=== PATIENT | male | born 2000 | race Caucasian/White ===

== ENCOUNTER 2022-04-23 05:46 | Inpatient (IN) | payer OTHER ==
[2022-04-23] MEDS ORDERED: MAG HYDROX/AL HYDROX/SIMETH 30 ML CUP PO PRN (06:09)
[2022-04-23] MEDS ORDERED: MAGNESIUM HYDROXIDE 2,400 MG/10 ML CUP PO PRN (06:09)
[2022-04-23] MEDS ORDERED: HALOPERIDOL LACTATE 5 MG/ML 1 ML VIAL IM PRN (06:09)
[2022-04-23] MEDS ORDERED: LORazepam 1 MG TAB PO PRN (06:09)
[2022-04-23] MEDS ORDERED: ACETAMINOPHEN TAB 325 MG TAB PO PRN (06:09)
[2022-04-23] MEDS ORDERED: LORazepam 2 MG/ML INJ IM PRN (06:18)
[2022-04-23] MEDS ORDERED: haloperidoL 5 MG TAB PO PRN (06:19)
[2022-04-23] MEDS: NICOTINE 14MG/24HR PATCH TRANSDERM SCH (16:07)
[2022-04-24 07:58] LABS: HCT 43.3 % (39.0-53.0); HGB 14.7 gm/dL (13.0-17.5); MCH 28.9 pg (25.0-35.0); Mean Platelet Volume 6.7; Platelet Count 283 k/uL (150-450); RDW 12.3 % (11.5-15.5); WBC 4.9 k/uL (3.8-10.6)
[2022-04-24 08:30] LABS: ALT 95 U/L (4-49); AST 140 U/L (17-59); African American GFR (CKD) >90 (>60 ml/min/1.73 sqM); Albumin 4.5 g/dL (3.5-5.0); Alkaline Phosphatase 55 U/L (38-126); Anion Gap 10 mmol/L; Bilirubin, Delta 0.4 mg/dL (0.0-0.2); Bilirubin,Unconjugated 0.8 mg/dL (0.0-1.1); Blood Urea Nitrogen 16 mg/dL (9-20); Calcium 9.4 mg/dL (8.4-10.2); Carbon Dioxide 27 mmol/L (22-30); Chloride 100 mmol/L (98-107); Glucose 84 mg/dL (74-99); Non-African American GFR(CKD) >90 (>60 ml/min/1.73 sqM); Potassium 4.6 mmol/L (3.5-5.1); Sodium 137 mmol/L (137-145); Total Bilirubin 1.2 mg/dL (0.2-1.3); Total Protein 7.2 g/dL (6.3-8.2)
[2022-04-24 09:52] LABS: Eosinophils # (M) 0.05 k/uL (0-0.7); Monocytes # (M) 0.34 k/uL (0-1.0); Neutrophils # (M) 2.11 k/uL (1.3-7.7); Neutrophils % (M) 43 %; Nucleated Red Blood Cells 0 /100 WBC (0-0); Reactive Lymphocytes Present; Total Cells Counted 100
[2022-04-24] MEDS: NICOTINE 14MG/24HR PATCH TRANSDERM SCH (10:36)
--- NOTE | 2022-04-24 12:39 | P.CONS ---
History of Present Illness - Reason for Consult Consult date: 04/24/22 Medical management Requesting physician: Maverick Katz - Chief Complaint Severe depression - History of Present Illness This is a pleasant 21-year-old patient, was being prescribed antidepressants per his family doctor Dr. Bari Gar. Who was at [facility] from 04/15/2022 was discharged yesterday at 04/23/2022. Patient presented to the ER with his parents. He'll finish school during pandemic. He previously was sleeps during the daytime and plays video games at night. Did not been able to get any psychiatry help because of insurance reasons. Also patient is reluctant to go and get outside help. But he was stays at home. Prior to presentation patient to many tablets of Klonopin 0.5 mg and Wellbutrin multiple medications the course of the day. He also developed a superficial laceration on the left breast . This was stitched up in the ER. Patient did have some myoclonic jerking. EEG was unremarkable. Diagnosed with delirium/encephalopathy. Poison control was contacted. Patient was found to have severe rhabdomyolysis with a CPK greater than 40,000. It had come down to 4000 by discharge. Patient was tolerating a diet. Ambulating the hallway. Patient accepted to [address] [place] [address]. Patient arrived here yesterday at 3:05 PM and intake was done. Patient feels a bit better today admitting. Did have his breakfast. Review of systems: GEN.: None EYES: None HEENT: None NECK: None RESPIRATORY: None CARDIOVASCULAR: None GASTROINTESTINAL: None GENITOURINARY: None MUSCULOSKELETAL: Laceration left wrist. stitches. LYMPHATICS: None HEMATOLOGICAL: None PSYCHIATRY: Depressed NEUROLOGICAL: None Social history: Lives with his parents. Unemployed. Physical examination: VITAL SIGNS: 97.8, 68, 16, 152/70, 99% room air GENERAL: BMI 23.2, awake, comfortable. EYES: Pupils equal. Conjunctiva normal. HEENT: External appearance of nose and ears normal, oral cavity grossly normal. NECK: JVD not raised; masses not palpable. HEART: First and second heart sounds are normal; no edema. LUNGS: Respiratory rate normal; clear to auscultation. ABDOMEN: Soft, nontender, liver spleen not palpable, no masses palpable. PSYCH: [Alert and oriented x3; mood and affect depressed. MUSCULOSKELETAL:No Clubbing/cyanosis;muscles-grossly intact. Superficial laceration to the left wrist with stitches NEUROLOGICAL: Cranial nerves grossly intact; no facial asymmetry, power and sensation grossly intact. LYMPHATICS: No lymph nodes palpable in the axilla and neck INVESTIGATIONS, reviewed in the clinical context: White count 4.9 hemoglobin 14.7 platelets 23 potassium 4.6 creatinine 0.9 to AST 140 ALT 95 TSH 1.5 Investigations from the other hospital: Urine drug screen negative Assessment and plan: -Major depression, recurrent with psychosis. Suicide attempt Follow with psychiatry. -Acute hepatitis secondary to medications. The son Ghanshyam acute hepatitis panel. -Acute rhabdomyolysis from myoclonus, documented abnormalities. Improving. Check CPK. Encourage oral intake discussed with patient. Thank you Dr. Katz. Patient to follow-up with Dr. Bari Gar upon discharge Past Medical History History of Any Multi-Drug Resistant Organisms: None Reported Smoking Status: Vaper Past Alcohol Use History: None Reported Past Drug Use History: None Reported Medications and Allergies Allergies Allergy/AdvReac Type Severity Reaction Status Date / Time No Known Allergies Allergy Verified 04/23/22 06:06 Physical Exam Vitals: Vital Signs Temp Pulse Resp BP Pulse Ox 04/24/22 06:52 97.8 F 68 16 152/70 99 04/23/22 15:05 98.3 F 74 16 126/73 96 Intake and Output 04/23/22 04/24/22 04/24/22 22:59 06:59 14:59 Other: Weight 69.173 kg Results CBC & Chem 7: 04/24/22 07:28 04/24/22 07:28 Labs: Abnormal Lab Results - Last 24 Hours (Table) 04/24/22 Range/Units 07:28 Delta Bilirubin 0.4 H (0.0-0.2) mg/dL AST 140 H (17-59) U/L ALT 95 H (4-49) U/L
[2022-04-24] MEDS ORDERED: hydrOXYzine pamoate 25 MG CAP PO PRN (14:50)
[2022-04-24 15:51] LABS: Chol/HDL Ratio 4.88 Ratio; LDL Cholesterol,Calculated 77.1 mg/dL (0.0-131.0)
[2022-04-24] MEDS: DULoxetine HCL 30 MG CAPSULE.DR PO SCH (16:15)
--- NOTE | 2022-04-24 17:17 | P.HP ---
Psychiatric H&P - . H&P Date: 04/24/22 History & Physical: Allergies Allergy/AdvReac Type Severity Reaction Status Date / Time No Known Allergies Allergy Verified 04/23/22 06:06 Vital Signs Temp 97.8 F 04/24/22 06:52 Pulse 68 04/24/22 06:52 Resp 16 04/24/22 06:52 BP 152/70 04/24/22 06:52 Pulse Ox 99 04/24/22 06:52 FiO2 Intake & Output 04/23/22 04/24/22 04/24/22 18:59 06:59 18:59 Weight 69.173 kg Laboratory Last Values WBC 4.9 k/uL (3.8-10.6) 04/24/22 07:28 RBC 5.10 m/uL (4.30-5.90) 04/24/22 07:28 Hgb 14.7 gm/dL (13.0-17.5) 04/24/22 07:28 Hct 43.3 % (39.0-53.0) 04/24/22 07:28 MCV 85.0 fL (80.0-100.0) 04/24/22 07:28 MCH 28.9 pg (25.0-35.0) 04/24/22 07:28 MCHC 34.0 g/dL (31.0-37.0) 04/24/22 07:28 RDW 12.3 % (11.5-15.5) 04/24/22 07:28 Plt Count 283 k/uL (150-450) 04/24/22 07:28 MPV 6.7 04/24/22 07:28 Neutrophils % (Manual) 43 % 04/24/22 07:28 Lymphocytes % (Manual) 49 % 04/24/22 07:28 Monocytes % (Manual) 7 % 04/24/22 07:28 Eosinophils % (Manual) 1 % 04/24/22 07:28 Neutrophils # (Manual) 2.11 k/uL (1.3-7.7) 04/24/22 07:28 Lymphocytes # (Manual) 2.40 k/uL (1.0-4.8) 04/24/22 07:28 Monocytes # (Manual) 0.34 k/uL (0-1.0) 04/24/22 07:28 Eosinophils # (Manual) 0.05 k/uL (0-0.7) 04/24/22 07:28 Nucleated RBCs 0 /100 WBC (0-0) 04/24/22 07:28 Manual Slide Review Performed 04/24/22 07:28 Reactive Lymphocytes Present 04/24/22 07:28 Sodium 137 mmol/L (137-145) 04/24/22 07:28 Potassium 4.6 mmol/L (3.5-5.1) 04/24/22 07:28 Chloride 100 mmol/L (98-107) 04/24/22 07:28 Carbon Dioxide 27 mmol/L (22-30) 04/24/22 07:28 Anion Gap 10 mmol/L 04/24/22 07:28 BUN 16 mg/dL (9-20) 04/24/22 07:28 Creatinine 0.92 mg/dL (0.66-1.25) 04/24/22 07:28 Est GFR (CKD-EPI)AfAm >90 (>60 ml/min/1.73 sqM) 04/24/22 07:28 Est GFR (CKD-EPI)NonAf >90 (>60 ml/min/1.73 sqM) 04/24/22 07:28 Glucose 84 mg/dL (74-99) 04/24/22 07:[address] Glu mg/dL 89 04/24/22 07:28 Hemoglobin A1c 4.7 % (0.0-6.0) 04/24/22 07:28 Calcium 9.4 mg/dL (8.4-10.2) 04/24/22 07:28 Total Bilirubin 1.2 mg/dL (0.2-1.3) 04/24/22 07:28 Conjugated Bilirubin 0.0 mg/dL (0.0-0.3) 04/24/22 07:28 Unconjugated Bilirubin 0.8 mg/dL (0.0-1.1) 04/24/22 07:28 Delta Bilirubin 0.4 mg/dL (0.0-0.2) H 04/24/22 07:28 AST 140 U/L (17-59) H 04/24/22 07:28 ALT 95 U/L (4-49) H 04/24/22 07:28 Alkaline Phosphatase 55 U/L (38-126) 04/24/22 07:28 Total Protein 7.2 g/dL (6.3-8.2) 04/24/22 07:28 Albumin 4.5 g/dL (3.5-5.0) 04/24/22 07:28 Triglycerides 159.00 mg/dL (0.00-149.00) H 04/24/22 07:28 Cholesterol 137.00 mg/dL (0.00-200.00) 04/24/22 07:28 LDL Cholesterol, Calc 77.1 mg/dL (0.0-131.0) 04/24/22 07: VLDL Cholesterol, Calc 31.80 mg/dL (5.00-40.00) 04/24/22 07: HDL Cholesterol 28.10 mg/dL (40.00-60.00) L 04/24/22 07: Cholesterol/HDL Ratio 4.88 Ratio 04/24/22: TSH 1.530 mIU/L (0.465-4.680) 04/24/22 07:28 04/24/22 17:01 IDENTIFYING DATA: Patient is a []21 yo male, who currently lives with his family in a house, unemployed HPI: Patient presented to the hospital on a petition and certificate and admitted involuntarily. Patient apparently overdosed at home in a suicide attempt. Patient was agreeable to be seen by marketing writer int he office today. he was monotone and concrete. he had his hair covering his face throughout the interview. he claims that he was trying to kill himself before coming into the hospital. he claims that he overdosed on multiple pills, klonopin cymbalta and wellbutrin. He states that he also cut his wrists at home. He claims that he went to sleep and "woke up in the hospital". he is denying any triggers ta home or in his life, no recent stressors. he states that "I just had the desire to do it". he has limited insight and poor judgment. claims that his sleep is fiar and appetite is fair. admitts to depression and anxiety. Patient denies any current suicidal or homicidal ideations intent or plan. At this time patient denies any auditory or visual hallucinations. Patient denies any flight of ideas racing thoughts and increased in goal directed behavior. Patient admits to using vaping products. PAST PSYCHIATRIC HISTORY: Patient states that [He has a hx of depression and anxiety]. [Patient was previously on cymbalta, wellbutrin, klonopin, zoloft.] Patient claims that he has never been admitted to a psych unit previously. He states that he gets his meds percribed by his pcp Dr Gar. He claims that he previously overdosed on etoh and xanax.\\ Past Medical History: No Reported History History of Any Multi-Drug Resistant Organisms: None Reported Past Surgical History: No Surgical Hx Reported Past Psychological History: Anxiety, Depression, PTSD Smoking Status: Never smoker Past Alcohol Use History: None Reported Past Drug Use History: None Reported ALLERGIES: as per EMR CHEMICAL DEPENDENCY HISTORY: as per HPI FAMILY PSYCHIATRIC/SUBSTANCE USE HISTORY: states that his brother has depression SOCIAL HISTORY: Patient was born and raised in [place], [place]. He claims that he compkleted high school and did one year of university at [employer]. he denies any legal history, currently lives alone. MENTAL STATUS EXAM: General Appearance: Patient appears to be [thin,] stated age is alert, long hair covering his face, [directable, and attempts to cooperate]. Patient appears to have [fair] hygiene and grooming. Behavior: Patient is seated without any agitated behavior. []cooperative Speech: Patient's speech is [fluent and nonpressured.] monotone, concrete. Mood/Affect: Patient reports their mood is [depressed and anxious], affect is congruent and constricted. Suicidality/Homicidality: Patient denies having any homicidal ideation intent or plan. [Denies any suicidal ideations intent or plan] Perceptions: Patient denies any visual hallucinations [and denies any auditory hallucinations] Though content/process: [There is no evidence of any delusional thought content and thought process is linear and goal-directed.] concrete. minimizing need for treatment and hospitalization. Memory and concentration: AOX3, grossly intact for the purposes of this session. Can spell "WORLD" backwards Judgment and insight: [poor] STRENGTHS/WEAKNESSES: strength is that patient is [resilient]. Weakness is that patient [has poor judgment and is impulsive] INTELLECT: [average] IMPRESSIONS: []Major depressive disorder without psychotic features anxiety disorder unspecified overdose of medication PLAN: -Patient is admitted under [involuntary] status to MHU for stabilization of psychiatric symptoms and safety. Patient has signed [medication consent] and is placed in patient's chart. -Medications : Will start patient on cymbalta 30 mg daily for mood/anxiety, lithium 150 mg bid for mood stabiliation/suicidal thoughts. vistaril prn for anxiety. -Ativan [and Haldol] PRN for agitation/aggression -Patient was informed of the risks, benefits and side effects of the medication and patient verbally consented to taking the medications. Patient signed med consent form and was placed in chart. -Internal Medicine consult to perform medical evaluation and physical. -NRT - nicotine patch -SW on board for discharge planning. Encourage patient to participate in groups to work on coping skills. will await deferral and court hearing date 04/24/22 17:15 04/24/22 17:16
[2022-04-24] MEDS: LITHIUM CARBONATE 150 MG CAP PO SCH (20:56)
[2022-04-25] MEDS: DULoxetine HCL 30 MG CAPSULE.DR PO SCH (09:28)
[2022-04-25] MEDS: LITHIUM CARBONATE 150 MG CAP PO SCH ×2 (09:28→21:44)
[2022-04-25] MEDS: NICOTINE 14MG/24HR PATCH TRANSDERM SCH (09:29)
[2022-04-25 09:55] LABS: Hepatitis A Antibody IgM Nonreactive (Nonreactive); Hepatitis B Core IgM Nonreactive (Nonreactive); Hepatitis B Surface Antigen Nonreactive (Nonreactive); Hepatitis C IgG Antibody Nonreactive (Nonreactive)
[2022-04-26] MEDS: DULoxetine HCL 30 MG CAPSULE.DR PO SCH ×2 (09:20→20:51)
[2022-04-26] MEDS: NICOTINE 14MG/24HR PATCH TRANSDERM SCH (09:20)
[2022-04-26] MEDS: LITHIUM CARBONATE 150 MG CAP PO SCH ×2 (09:20→20:51)
--- NOTE | 2022-04-26 21:47 | P.PN ---
Progress Note - Text Progress Note Date: 04/26/22 Interval history: Patient was directable and agreeable to speak with promotion writer. He appears withdrawn, covers his face with his hair. He admits he gets nervous around others. He does not say much, but admits to depressed mood and agrees to increase the Cymbalta to 30 mg BID. At this time, patient denies any suicidal or homicidal ideation, intent or plan. Denies any auditory or visual hallucinations. Patient denies any side effects from the medications and has been compliant with meds. Mental status exam: General Appearance: Patient appears to be stated age, dressed in hospital gown, pale skin, long hair covering face. Behavior: No agitated behavior. Patient is calm and directable. Speech: Patient's speech is fluent and non-pressured. Mood/Affect: Mood is improving mildly, affect is congruent and constricted. Suicidality/Homicidality: Patient denies having any suicidal or homicidal ideation intent or plan. Perceptions: Patient denies any auditory or visual hallucinations. Though content/process: There is no evidence of any delusional thought content and thought process is linear and goal-directed. Memory and concentration: AOX3, grossly intact for the purposes of this session Judgment and insight: Improving mildly Assessment/Plan: Continue with current diagnosis. Patient continues to meet criteria for inpatient psychiatric admission for symptom stabilization and safety. Increase Cymbalta to 30 mg BID for depression/anxiety. Monitor for medication compliance and for any psychotropic medication side effects. Will continue to monitor ongoing response to treatment. Encouraged participation in milieu.
--- NOTE | 2022-04-26 21:51 | P.PN ---
Progress Note - Text Progress Note Date: 04/25/22 Interval history: Patient was seen in his room where he was laying in bed asleep in the middle of the day. He appears withdrawn, isolative, covers his face with his hair. He is passively engaged in assessment, responses are brief and lacking detail. He reports mood is average, reports the medications are "ok". He reports good sleep, normal appetite, has attended a couple groups. At this time, patient denies any suicidal or homicidal ideation, intent or plan. Denies any auditory or visual hallucinations. Patient denies any side effects from the medications and has been compliant with meds. Mental status exam: General Appearance: Patient appears to be stated age, dressed in hospital gown, pale skin, long hair covering face. Behavior: No agitated behavior. Patient is calm and directable. Speech: Patient's speech is fluent and non-pressured. Mood/Affect: Mood is improving mildly, affect is congruent and constricted. Suicidality/Homicidality: Patient denies having any suicidal or homicidal ideation intent or plan. Perceptions: Patient denies any auditory or visual hallucinations. Though content/process: There is no evidence of any delusional thought content and thought process is linear and goal-directed. Memory and concentration: AOX3, grossly intact for the purposes of this session Judgment and insight: Improving mildly Assessment/Plan: Continue with current diagnosis. Patient continues to meet criteria for inpatient psychiatric admission for symptom stabilization and safety. Patient will be maintained on current psychotropic medication regimen. Monitor for medication compliance and for any psychotropic medication side effects. Will continue to monitor ongoing response to treatment. Encouraged participation in milieu.
[2022-04-27] MEDS: LITHIUM CARBONATE 150 MG CAP PO SCH ×3 (10:19→20:52)
[2022-04-27] MEDS: DULoxetine HCL 30 MG CAPSULE.DR PO SCH (10:19)
[2022-04-27] MEDS: NICOTINE 14MG/24HR PATCH TRANSDERM SCH (10:19)
--- NOTE | 2022-04-27 13:27 | P.PN ---
Progress Note - Text Progress Note Date: 04/27/22 Interval History: Patient was seen today and was agreeable to speak to contract writer in the office. Skyler tomer continues to have hair that covering his face. Continues to be fairly constricted and concrete in his answers. He was directable. He was polite with a contract writer. He states that he has been taking his medications however does not see much of an improvement. He claims that he does not want to feel "pain" and also does not want to have "other people find me" if he were to harm himself however did not contract to safety. He continues to have on and off suicidal thoughts and little remorse about what had occurred prior to coming into the hospital. He states that he is able to sleep fairly last night. We spoke more about his medications and increasing the Cymbalta which she was okay with. He is denying any homicidal ideations intent or plan. Denying any auditory or visual hallucinations. Mental Status Exam: General Appearance: Patient appears to be [thin,] stated age is alert, long hair covering his face, [directable, and attempts to cooperate]. Patient appears to have [fair] hygiene and grooming. Behavior: Patient is seated without any agitated behavior. []cooperative Speech: Patient's speech is [fluent and nonpressured.] monotone, concrete. Mood/Affect: Patient reports their mood is ["about the same"], affect is congruent and constricted. Suicidality/Homicidality: Patient denies having any homicidal ideation intent or plan. [Denies any suicidal ideations intent or plan] Perceptions: Patient denies any visual hallucinations [and denies any auditory hallucinations] Though content/process: [There is no evidence of any delusional thought content and thought process is linear and goal-directed.] concrete. continues to talk about suicide and . Memory and concentration: AOX3, grossly intact for the purposes of this session Judgment and insight: poor, improving mildly IMPRESSIONS: []Major depressive disorder without psychotic features anxiety disorder unspecified overdose of medication PLAN: -Patient is admitted under [involuntary] status to MHU for stabilization of psychiatric symptoms and safety. -Medications : increase cymbalta 30 mg daily + 60 mg qhs for mood/anxiety, increase lithium 150 mg TID for mood stabiliation/suicidal thoughts. vistaril prn for anxiety. -Ativan [and Haldol] PRN for agitation/aggression -NRT - nicotine patch -SW on board for discharge planning. Encourage patient to participate in groups to work on coping skills. will await deferral and court hearing date
[2022-04-27] MEDS ORDERED: DULoxetine HCL 60 MG CAPSULE.DR PO SCH (21:00)
[2022-04-28] MEDS ORDERED: DULoxetine HCL 30 MG CAPSULE.DR PO SCH (09:00)
[2022-04-28] MEDS: LITHIUM CARBONATE 150 MG CAP PO SCH (10:19)
[2022-04-28] MEDS: NICOTINE 14MG/24HR PATCH TRANSDERM SCH (10:20)
--- NOTE | 2022-04-28 13:01 | P.PN ---
Progress Note - Text Progress Note Date: 04/28/22 Interval History: Patient was seen today laying in his bed and was agreeable to speak to headline writer in the office. Patient continues to have hair that covering his face and continues to be fairly constricted and concrete in his answers. he continues to be fairly polite with headline writer. He states that he is able to sleep fairly last night. he states that he continues to struggle with and end of life and states that he has been dealing with SI for a while now. he continues to state that he does not want to feel pain or cause problems for others. he states that he has been having difficulties sleeping and states that his roomate was snoring and kept him up last night. We spoke more about his medications and increasing the Cymbalta which she was okay with. He is denying any immediate thoughts of SI, denies any homicidal ideations intent or plan. Denying any auditory or visual hallucinations. patient has been taking his meds and denies any a/e. Mental Status Exam: General Appearance: Patient appears to be [thin,] stated age is alert, long hair covering his face, [directable, and attempts to cooperate]. Patient appears to have [fair] hygiene and grooming. Behavior: Patient is seated without any agitated behavior. cooperative Speech: Patient's speech is [fluent and nonpressured.] monotone, concrete. Mood/Affect: Patient reports their mood is ["about the same"], affect is congruent and constricted. Suicidality/Homicidality: Patient denies having any homicidal ideation intent or plan. [Denies any suicidal ideations intent or plan] Perceptions: Patient denies any visual hallucinations [and denies any auditory hallucinations] Though content/process: [There is no evidence of any delusional thought content and thought process is linear and goal-directed.] concrete. continues to talk about suicide and , improving mildly, some future orientation. Memory and concentration: AOX3, grossly intact for the purposes of this session Judgment and insight: improving mildly IMPRESSIONS: Major depressive disorder without psychotic features anxiety disorder unspecified overdose of medication PLAN: -Patient is admitted under [involuntary] status to MHU for stabilization of psychiatric symptoms and safety. -Medications : increase cymbalta 60 mg BID for mood/anxiety, change to lithobid 450 mg daily for mood stabiliation/suicidal thoughts. vistaril prn for anxiety. -check lithium level, comp and CK tomorrow morning. -Ativan [and Haldol] PRN for agitation/aggression -NRT - nicotine patch -SW on board for discharge planning. Encourage patient to participate in groups to work on coping skills. patient deferred with his immigration attorney. likely discharge in 1-2 days.
[2022-04-28] MEDS: DULoxetine HCL 60 MG CAPSULE.DR PO SCH (20:37)
[2022-04-29] MEDS: LITHIUM CARBONATE ER 450 MG TABLET.ER PO SCH (08:21)
[2022-04-29] MEDS: DULoxetine HCL 60 MG CAPSULE.DR PO SCH ×2 (08:21→20:12)
[2022-04-29] MEDS: NICOTINE 14MG/24HR PATCH TRANSDERM SCH (08:42)
[2022-04-29 09:59] LABS: ALT 88 U/L (4-49); AST 47 U/L (17-59); African American GFR (CKD) >90 (>60 ml/min/1.73 sqM); Albumin 4.4 g/dL (3.5-5.0); Alkaline Phosphatase 52 U/L (38-126); Anion Gap 10 mmol/L; Blood Urea Nitrogen 13 mg/dL (9-20); Carbon Dioxide 26 mmol/L (22-30); Chloride 102 mmol/L (98-107); Creatine Kinase 336 U/L (55-170); Glucose 155 mg/dL (74-99); Non-African American GFR(CKD) >90 (>60 ml/min/1.73 sqM); Sodium 138 mmol/L (137-145); Total Bilirubin 0.7 mg/dL (0.2-1.3); Total Protein 6.8 g/dL (6.3-8.2)
--- NOTE | 2022-04-29 10:20 | P.PN ---
Progress Note - Text Progress Note Date: 04/29/22 Interval History: Patient was seen today laying in his bed and was agreeable to speak to jingle writer in the office. Patient continues to have hair that covering his face and continues to be fairly constricted however today patient claims that he is doing a bit better overall. He states that he has only been going to about 2 groups a day and usually misses the morning groups as he is not interested in them. He was fairly polite and directable during conversation and fairly appropriate. He claims that he did speak with his mother over the phone however was fairly guarded about what they talked about. He did speak about where she will be following up near [place] where he lives. He did ask questions more about his medications and appears to be more involved. Appears to have mildly improving insight and judgment today. States that he slept a bit better last night and has a fair appetite. He is denying any immediate thoughts of SI, denies any homicidal ideations intent or plan. Denying any auditory or visual hallucinations. patient has been taking his meds and denies any a/e. Mental Status Exam: General Appearance: Patient appears to be [thin,] stated age is alert, long hair covering his face, [directable, and attempts to cooperate]. Patient appears to have [fair] hygiene and grooming. Behavior: Patient is seated without any agitated behavior. cooperative Speech: Patient's speech is [fluent and nonpressured.] monotone, concrete, improving mildly Mood/Affect: Patient reports their mood is ["a bit better "], affect is congruent Suicidality/Homicidality: Patient denies having any homicidal ideation intent or plan. [Denies any suicidal ideations intent or plan] Perceptions: Patient denies any visual hallucinations [and denies any auditory hallucinations] Though content/process: [There is no evidence of any delusional thought content and thought process is linear and goal-directed.] concrete. more future oriented today. Memory and concentration: AOX3, grossly intact for the purposes of this session Judgment and insight: improving mildly IMPRESSIONS: Major depressive disorder without psychotic features anxiety disorder unspecified overdose of medication PLAN: -Patient is admitted under [involuntary] status to MHU for stabilization of psychiatric symptoms and safety. -Medications : cymbalta 60 mg BID for mood/anxiety, lithobid 450 mg daily for mood stabiliation/suicidal thoughts. vistaril prn for anxiety. -awaiting lithium level. CK improved and LFTs improved aswell. -Ativan [and Haldol] PRN for agitation/aggression -NRT - nicotine patch -SW on board for discharge planning. Encourage patient to participate in groups to work on coping skills. patient deferred with his assistant attorney general. likely discharge tomorrow. SW to coordinate discharge planning and ensure safeenvt at home with parents.
[2022-04-29 11:32] LABS: Lithium 0.3 mmol/L
[2022-04-29] MEDS ORDERED: LACTULOSE 20 GM/30 ML CUP PO ONE (16:50)
--- NOTE | 2022-04-29 16:53 | P.PN ---
Progress Note - Text Progress Note Date: 04/29/22 - Chief Complaint Severe depression Hospital course: This is a pleasant 21-year-old patient, was being prescribed antidepressants per his family doctor Dr. Brai Gar. Who was at [facility] from 04/15/2022 was discharged yesterday at 04/23/2022. Patient presented to the ER with his parents. He'll finish school during pandemic. He previously was sleeps during the daytime and plays video games at night. Did not been able to get any psychiatry help because of insurance reasons. Also patient is reluctant to go and get outside help. But he was stays at home. Prior to presentation patient to many tablets of Klonopin 0.5 mg and Wellbutrin multiple medications the course of the day. He also developed a superficial laceration on the left breast . This was stitched up in the ER. Patient did have some myoclonic j erking. EEG was unremarkable. Diagnosed with delirium/encephalopathy. Poison control was contacted. Patient was found to have severe rhabdomyolysis with a CPK greater than 40,000. It had come down to 4000 by discharge. Patient was tolerating a diet. Ambulating the hallway. Patient accepted to [address] [place] [address]. Patient arrived here yesterday at 3:05 PM and intake was done. Patient feels a bit better today admitting. Did have his breakfast. 04/29/2022: Patient doing much better. More cheerful. Up and about. Requesting a laxative. Eating well. CPK is down to 336. LFTs are much improved Active Medications Acetaminophen (Acetaminophen Tab 325 Mg Tab) 650 mg PO Q4HR PRN PRN Reason: Pain/Discomfort Al Hydroxide/Mg Hydroxide (Mag Hydrox/Al Hydrox/Simeth 30 Ml Cup) 30 ml PO Q4HR PRN PRN Reason: GI Upset Duloxetine HCl (Duloxetine Hcl 60 Mg Capsule.) 60 mg PO BID MARIAH Last Admin: 04/29/22 08:21 Dose: 60 mg Haloperidol (Haloperidol 5 Mg Tab) 5 mg PO QID PRN PRN Reason: Agitation or Acute Psychosis Haloperidol Lactate (Haloperidol Lactate 5 Mg/Ml 1 Ml Vial) 5 mg IM Q6HR PRN PRN Reason: Agitation or Acute Psychosis Hydroxyzine Pamoate (Hydroxyzine Pamoate 25 Mg Cap) 50 mg PO Q8HR PRN PRN Reason: Anxiety Lactulose (Lactulose 20 Gm/30 Ml Cup) 20 gm PO ONCE ONE Stop: 04/29/22 16:51 [place] Carbonate ([place] Carbonate Er 450 Mg Tablet.Er) 450 mg PO DAILY [facility] Last Admin: 04/29/22 08:21 Dose: 450 mg Lorazepam (Lorazepam 1 Mg Tab) 1 mg PO QID PRN PRN Reason: Anxiety, Agitation Lorazepam (Lorazepam 2 Mg/Ml Inj) 1 mg IM Q6HR PRN PRN Reason: Agitation or Acute Anxiety Magnesium Hydroxide (Magnesium Hydroxide 2,400 Mg/10 Ml Cup) 2,400 mg PO DAILY PRN PRN Reason: Constipation Nicotine (Nicotine 14mg/24hr Patch) 1 patch TRANSDERM DAILY [facility] Last Admin: 04/29/22 08:42 Dose: Not Given Social history: Lives with his parents. Unemployed. Physical examination: VITAL SIGNS: 98.3, 60, 18, 133/68, 98% room air GENERAL: Sitting up, comfortable, smiling. EYES: Pupils equal. Conjunctiva normal. HEENT: External appearance of nose and ears normal, oral cavity grossly normal. NECK: JVD not raised; masses not palpable. HEART: First and second heart sounds are normal; no edema. LUNGS: Respiratory rate normal; clear to auscultation. ABDOMEN: Soft, nontender, liver spleen not palpable, no masses palpable. PSYCH: [Alert and oriented x3; mood and affect depressed. MUSCULOSKELETAL:No Clubbing/cyanosis;muscles-grossly intact. Superficial laceration to the left wrist with stitches, healing well INVESTIGATIONS, reviewed in the clinical context: 04/29/2022: Potassium 4 creatinine 0.98 AST 47 ALT 88 CPK 336 Acute hepatitis panel: Negative White count 4.9 hemoglobin 14.7 platelets 23 potassium 4.6 creatinine 0.9 to AST 140 ALT 95 TSH 1.5 Investigations from the other hospital: Urine drug screen negative Assessment and plan: -Major depression, recurrent with psychosis. Suicide attempt: Better Follow with psychiatry. -Acute hepatitis secondary to medications.: Improving Acute hepatitis panel: Negative -Acute rhabdomyolysis from myoclonus, documented abnormalities. Much improved . Encourage oral intake discussed with patient. -Constipation Lactulose 20 g. 1 Doing much better. Patient to follow-up with Dr. Bari Gar upon discharge. Lactulose [address] Katz.
[2022-04-30 06:50] VITALS: BP 120/62; PULSE 58; RESP 16; TEMP 98.1
[2022-04-30] MEDS: DULoxetine HCL 60 MG CAPSULE.DR PO SCH (08:24)
[2022-04-30] MEDS: NICOTINE 14MG/24HR PATCH TRANSDERM SCH (08:24)
[2022-04-30] MEDS: LITHIUM CARBONATE ER 450 MG TABLET.ER PO SCH (08:24)
--- NOTE | 2022-04-30 09:56 | P.DS ---
Providers Date of admission: 04/23/22 15:04 Expected date of discharge: 04/30/22 Attending physician: Maverick Katz MD Consults: 04/23/22 06:09 Consult Physician Routine Consulting Provider: Cy Krause Consult Reason/Comments: H&P medical managment Do you want consulting provider notified?: Yes, Notify in am Primary care physician: Cy Krause - Discharge Diagnosis(es) (1) Major depressive disorder without psychotic features Current Visit: Yes Status: Acute Priority: High (2) Anxiety disorder Current Visit: Yes Status: Acute Priority: Medium (3) Overdose of medication Current Visit: Yes Status: Acute Priority: High Hospital Course: Admission HPI: Admission note was completed by senior mortgage underwriter "Patient is a 21 yo male, who currently lives with his family in a house, unemployed. Patient presented to the hospital on a petition and certificate and admitted involuntarily. Patient apparently overdosed at home in a suicide attempt. Patient was agreeable to be seen by senior mortgage underwriter int he office today. he was monotone and concrete. he had his hair covering his face throughout the interview. he claims that he was trying to kill himself before coming into the hospital. he claims that he overdosed on multiple pills, klonopin cymbalta and wellbutrin. He states that he also cut his wrists at home. He claims that he went to sleep and "woke up in the hospital". he is denying any triggers ta home or in his life, no recent stressors. he states that "I just had the desire to do it". he has limited insight and poor judgment. claims that his sleep is fiar and appetite is fair. admitts to depression and anxiety. Patient denies any current suicidal or homicidal ideations intent or plan. At this time patient denies any auditory or visual hallucinations. Patient denies any flight of ideas racing thoughts and increased in goal directed behavior. Patient admits to using vaping products." Hospital course: Upon admission to the unit patient was admitted involuntarily on a petition and certificate and a second certificate was completed and faxed with the courts. Patient ended up signing a deferral with the banking attorney and agreeing to treatment. Patient mainly kept to himself while on the unit however with time and treatment he got along well with other patients on the unit and followed unit protocol. Patient was compliant with the medications and denied any side effects throughout hospital course. Patient was started on lithobid 450 mg daily for moodstabilization/suicidal thoughts, cymbalta increased to 60 mg bid for mood/anxiety. Patient spoke of his stressors and engaged in therapy both group and individual. Patient was also seen by medical team for history and physical exam. patients CK and transaminitis improved on repeat blood work. Throughout the course of the hospitalization patient gradually improved with regards to mood, anxiety, suicidal thoughts, sleep and returned back to their baseline level of functioning. On the day of discharge patient denied any suicidal or homicidal ideations intent or plan denied any auditory or visual hallucinations. Patient endorsed wanting to live for his friends and family. The patient denied having any access to guns or weapons. Patient denied any paranoia and did not endorse any delusions. Patient does not have a significant history of substance abuse and was counseled on abstaining from all substances including alcohol and marijuana. Patient was also counseled on the medications and need for regular compliance and was encouraged to follow-up with their outpatient appointment for mental health and also for primary care. Prior to discharge a family meeting will be arranged by social psychologist to answer any questions and ensure safety upon discharge. SW to also ensure that there are no gunsor weapons or if there is that they are locked away. Mental status exam: General Appearance: Patient appears to be thin,long hair,stated age is alert, pleasant, and cooperative. Patient is in no acute distress and has improved hygiene and grooming Behavior: Patient is calmly seated without any agitated behavior.cooperative. Speech: Patient's speech is fluent and nonpressured. softer tone. Mood/Affect: Patient reports their mood is "better", affect is congruent Suicidality/Homicidality: Patient denies having any suicidal or homicidal ideation intent or plan. Perceptions: Patient denies any auditory or visual hallucinations. Though content/process: There is no evidence of any delusional thought content and thought process is linear and goal-directed. more future oriented Memory and concentration: AOX3, grossly intact for the purposes of this session. Can spell "WORLD" backwards correctly. Judgment and insight: chronically poor, however has improved with guarded prognosis Impression: Major depressive disorder without psychotic features Anxiety disorder unspecified Overdose of medication Plan: -Continue with discharge today as patient has improved and stabilized psychiatrically and is not currently an imminent threat to himself and/or others. Patient will remain at chronically elevated risk for harm to self and/or others due to his impulsivity and history of suicide attempts. -Continue medications: Cymbalta 60 mg twice a day for mood/anxiety, Lithobid 450 mg daily for mood stabilization/suicidal thoughts. -Patient was counseled on the need for medication compliance and appropriate follow-up at mental health and also primary care for medical issues. Patient verbalized understanding and agreed. -Social work to arrange for and conduct family meeting to ensure safety upon discharge and answer any questions/concerns. Social work also to arrange for patients follow up appointments with [facility] for psychiatric care along with follow up with primary care provider. -Patient counseled on abstaining from recreational drugs and marijuana and alcohol. Was informed/educated on the adverse effects on their physical and mental health. Patient verbally agreed and understood. -Patient was instructed to return to the hospital or seek immediate medical care if their psychiatric or medical symptoms do worsen or reoccur. Allergies Allergy/AdvReac Type Severity Reaction Status Date / Time No Known Allergies Allergy Verified 04/23/22 06:06 Laboratory Results WBC 4.9 k/uL (3.8-10.6) 04/24/22 07:28 RBC 5.10 m/uL (4.30-5.90) 04/24/22 07:28 Hgb 14.7 gm/dL (13.0-17.5) 04/24/22 07:28 Hct 43.3 % (39.0-53.0) 04/24/22 07:28 MCV 85.0 fL (80.0-100.0) 04/24/22 07:28 MCH 28.9 pg (25.0-35.0) 04/24/22 07:28 MCHC 34.0 g/dL (31.0-37.0) 04/24/22 07:28 RDW 12.3 % (11.5-15.5) 04/24/22 07:28 Plt Count 283 k/uL (150-450) 04/24/22 07:28 MPV 6.7 04/24/22 07:28 Neutrophils % (Manual) 43 % 04/24/22 07:28 Lymphocytes % (Manual) 49 % 04/24/22 07:28 Monocytes % (Manual) 7 % 04/24/22 07:28 Eosinophils % (Manual) 1 % 04/24/22 07:28 Neutrophils # (Manual) 2.11 k/uL (1.3-7.7) 04/24/22 07:28 Lymphocytes # (Manual) 2.40 k/uL (1.0-4.8) 04/24/22 07:28 Monocytes # (Manual) 0.34 k/uL (0-1.0) 04/24/22 07:28 Eosinophils # (Manual) 0.05 k/uL (0-0.7) 04/24/22 07:28 Nucleated RBCs 0 /100 WBC (0-0) 04/24/22 07:28 Manual Slide Review Performed 04/24/22 07:28 Reactive Lymphocytes Present 04/24/22 07:28 Sodium 138 mmol/L (137-145) 04/29/22 09:00 Potassium 4.0 mmol/L (3.5-5.1) 04/29/22 09:00 Chloride 102 mmol/L (98-107) 04/29/22 09:00 Carbon Dioxide 26 mmol/L (22-30) 04/29/22 09:00 Anion Gap 10 mmol/L 04/29/22 09:00 BUN 13 mg/dL (9-20) 04/29/22 09:00 Creatinine 0.98 mg/dL (0.66-1.25) 04/29/22 09:00 Est GFR (CKD-EPI)AfAm >90 (>60 ml/min/1.73 sqM) 04/29/22 09:00 Est GFR (CKD-EPI)NonAf >90 (>60 ml/min/1.73 sqM) 04/29/22 09:00 Glucose 155 mg/dL (74-99) H 04/29/22 09:[address] Glu mg/dL 89 04/24/22 07:28 Hemoglobin A1c 4.7 % (0.0-6.0) 04/24/22 07:28 Calcium 9.0 mg/dL (8.4-10.2) 04/29/22 09:00 Total Bilirubin 0.7 mg/dL (0.2-1.3) 04/29/22 09:00 Conjugated Bilirubin 0.0 mg/dL (0.0-0.3) 04/24/22 07:28 Unconjugated Bilirubin 0.8 mg/dL (0.0-1.1) 04/24/22 07:28 Delta Bilirubin 0.4 mg/dL (0.0-0.2) H 04/24/22 07:28 AST 47 U/L (17-59) 04/29/22 09:00 ALT 88 U/L (4-49) H 04/29/22 09:00 Alkaline Phosphatase 52 U/L (38-126) 04/29/22 09:00 Creatine Kinase 336 U/L (55-170) H 04/29/22 09:00 CK-MB (CK-2) 3.4 ng/mL (0.0-2.4) H 04/29/22 09:00 Total Protein 6.8 g/dL (6.3-8.2) 04/29/22 09:00 Albumin 4.4 g/dL (3.5-5.0) 04/29/22 09:00 Triglycerides 159.00 mg/dL (0.00-149.00) H 04/24/22 07:28 Cholesterol 137.00 mg/dL (0.00-200.00) 04/24/22 07:28 LDL Cholesterol, Calc 77.1 mg/dL (0.0-131.0) 04/24/22 07:28 VLDL Cholesterol, Calc 31.80 mg/dL (5.00-40.00) 04/24/22 07:28 HDL Cholesterol 28.10 mg/dL (40.00-60.00) L 04/24/22 07:28 Cholesterol/HDL Ratio 4.88 Ratio 04/24/22 07: TSH 1.530 mIU/L (0.465-4.680) 04/24/22 07: [place] 0.3 mmol/L 04/29/22 09:00 Hepatitis A IgM Ab Nonreactive (Nonreactive) 04/24/22 07: Hep Bs Antigen Nonreactive (Nonreactive) 04/24/22 07:28 Hep B Core IgM Ab Nonreactive (Nonreactive) 04/24/22 07:28 Hep C IgG Ab Nonreactive (Nonreactive) 04/24/22 07:28 Vital Signs Temp 98.1 F 03/16/23 06:49 Pulse 58 L 04/30/22 06:49 Resp 16 04/30/22 06:49 BP 120/62 04/30/22 06:49 Pulse Ox 99 04/30/22 06:49 FiO2 Patient Condition at Discharge: Stable Plan - Discharge Summary New Discharge Prescriptions: New DULoxetine HCL [Cymbalta] 60 mg PO BID 15 Days #30 cap [place] Carbonate ER [Lithobid] 450 mg PO DAILY 15 Days #15 tab Discharge Medication List DULoxetine HCL [Cymbalta] 60 mg PO BID 15 Days #30 cap 04/30/22 [Rx] [place] Carbonate ER [Lithobid] 450 mg PO DAILY 15 Days #15 tab 04/30/22 [Rx] Follow up Appointment(s)/Referral(s): [facility] [Outside] - 1 Week Activity/Diet/Wound Care/Special Instructions: Avoid the use of street drugs and alcohol. Take all medications as prescribed. When you are in need of refills on your medications, please contact your medical provider and/or outpatient psychiatrist to have this done. Please go to scheduled outpatient appointments for aftercare treatment. If symptoms return or become worse, call the crisis line at and/or go to the nearest emergency room for evaluation. Discharge Disposition: HOME SELF-CARE
== END 2022-04-30 12:51 | disposition home or self-care (01) | DRG 885 ==
LOC: 3MHU 15:04
PROVIDERS: ADMIT Psychiatry & Neurology Psychiatry; ATTEND Psychiatry & Neurology Psychiatry
DX: F33.3 Major depressive disorder, recurrent, severe with psychotic symptoms (principal); G93.40 Encephalopathy, unspecified; M62.82 Rhabdomyolysis; G25.3 Myoclonus; K75.89 Other specified inflammatory liver diseases; K59.00 Constipation, unspecified; X78.9XXD Intentional self-harm by unspecified sharp object, subsequent encounter; Z56.0 Unemployment, unspecified; Z81.8 Family history of other mental and behavioral disorders; Z91.51 Personal history of suicidal behavior; Z79.899 Other long term (current) drug therapy; Z28.310 Unvaccinated for COVID-19; T42.4X2D Poisoning by benzodiazepines, intentional self-harm, subsequent encounter; S61.512D Laceration without foreign body of left wrist, subsequent encounter
CPT/HCPCS: 80053; 80061; 80074; 80178; 82248; 82550; 82553; 83036; 84443; 85025

== ENCOUNTER 2022-06-12 21:10 | Inpatient (IN) | payer OTHER, MEDICAID ==
[2022-06-12] MEDS ORDERED: SODIUM CHLORIDE 0.9% 1,000 ML IV STA (21:28)
--- NOTE | 2022-06-12 21:42 | ED ---
Psych HPI - General Chief Complaint: Psychiatric Symptoms Stated Complaint: Mental Health Time Seen by Provider: 06/12/22 21:13 Source: patient, EMS Mode of arrival: EMS - History of Present Illness Initial Comments: This patient is a 21-year-old man who presents to have evaluation worsening depression and suicidal ideation. This been going on and getting worse now over number days. The patient also states that he tried to overdose this morning around 5 AM. Patient took a total of 3600 mg of Cymbalta. Patient denies coingestants. He states that he feels a bit tremulous now but otherwise denying symptoms related. MD Complaint: suicidal ideation, feels depressed -: days(s) Associated Psychiatric Symptoms: depression, suicidal ideation History of same: Yes Quality: getting worse Improves With: none Worsens With: none Associated Symptoms: denies other symptoms - Related Data Previous Rx's Medication Instructions Recorded Acetaminophen Tab [Tylenol] 650 mg PO Q4HR PRN #0 tab 06/24/22 Ergocalciferol (Vitamin D2) 1,250 mcg PO Q7D 7 Days #1 cap 06/24/22 [Drisdol (50,000 Iu)] FLUoxetine HCL [PROzac] 80 mg PO DAILY 7 Days #14 cap 06/24/22 [place] Carbonate ER [Lithobid] 450 mg PO DAILY 7 Days #7 tab 06/24/22 Pantoprazole [Protonix] 40 mg PO DAILY 7 Days #7 tab 06/24/22 traZODone HCL [Desyrel] 100 mg PO HS PRN 7 Days #7 tab 06/24/22 Allergies Allergy/AdvReac Type Severity Reaction Status Date / Time No Known Allergies Allergy Verified 06/12/22 21:51 Review of Systems ROS Statement: Those systems with pertinent positive or pertinent negative responses have been documented in the HPI. ROS Other: All systems not noted in ROS Statement are negative. Constitutional: Denies: fever, chills Respiratory: Denies: cough, dyspnea Cardiovascular: Denies: chest pain, palpitations, edema, syncope Gastrointestinal: Reports: nausea. Denies: abdominal pain, vomiting, diarrhea Genitourinary: Denies: dysuria, hematuria Musculoskeletal: Denies: back pain Skin: Denies: rash Neurological: Denies: headache Psychiatric: Reports: depression, suicidal thoughts Past Medical History Additional Past Medical History / Comment(s): Acid reflux History of Any Multi-Drug Resistant Organisms: None Reported Past Surgical History: No Surgical Hx Reported Past Psychological History: Depression Smoking Status: Vaper Past Alcohol Use History: None Reported Past Drug Use History: None Reported General Exam Limitations: no limitations General appearance: alert, in no apparent distress Head exam: Present: atraumatic, normocephalic Eye exam: Present: normal appearance. Absent: scleral icterus, conjunctival injection Neck exam: Present: normal inspection Respiratory exam: Present: normal lung sounds bilaterally. Absent: respiratory distress, wheezes, rales, rhonchi, stridor Cardiovascular Exam: Present: normal rhythm, tachycardia, normal heart sounds. Absent: systolic murmur, diastolic murmur, rubs, gallop GI/Abdominal exam: Present: soft. Absent: distended, tenderness, guarding, rebound, rigid, mass Extremities exam: Present: normal inspection, normal capillary refill. Absent: pedal edema, calf tenderness Back exam: Present: normal inspection. Absent: CVA tenderness (R), CVA tenderness (L) Neurological exam: Present: alert Psychiatric exam: Present: depressed, flat affect, suicidal ideation. Absent: agitated, anxious, homicidal ideation Skin exam: Present: warm, dry, intact, normal color. Absent: rash Course Vital Signs 06/12/22 06/12/22 06/12/22 21:13 21:30 21:32 Temperature 97.7 F Pulse Rate 126 H 128 H Pulse Rate [ 125 H Quality Assurance Qa Lab Technician ] Respiratory 20 18 Rate Blood Pressure 121/91 119/80 O2 Sat by Pulse 99 98 Oximetry 06/12/22 06/12/22 06/12/22 21:40 21:50 22:00 Temperature Pulse Rate 118 H 116 H 123 H Pulse Rate [ Quality Assurance Qa Lab Technician ] Respiratory 18 20 15 Rate Blood Pressure 122/80 122/80 122/80 O2 Sat by Pulse 98 99 100 Oximetry 06/12/22 06/12/22 06/12/22 22:15 22:30 22:45 Temperature Pulse Rate 112 H 106 H 101 H Pulse Rate [ Quality Assurance Qa Lab Technician ] Respiratory 18 22 16 Rate Blood Pressure 124/86 124/86 122/92 O2 Sat by Pulse 99 100 98 Oximetry 06/12/22 06/12/22 06/12/22 23:00 23:30 23:45 Temperature Pulse Rate 97 95 101 H Pulse Rate [ Quality Assurance Qa Lab Technician ] Respiratory 20 22 20 Rate Blood Pressure 122/92 137/96 O2 Sat by Pulse 99 100 99 Oximetry 06/13/22 06/13/22 06/13/22 00:00 00:15 00:30 Temperature Pulse Rate 104 H 115 H 115 H Pulse Rate [ Quality Assurance Qa Lab Technician ] Respiratory 18 20 17 Rate Blood Pressure 137/96 129/97 129/97 O2 Sat by Pulse 100 98 97 Oximetry 06/13/22 06/13/22 06/13/22 01:00 01:30 01:45 Temperature Pulse Rate 107 H 103 H 105 H Pulse Rate [ Quality Assurance Qa Lab Technician ] Respiratory 18 20 20 Rate Blood Pressure 132/92 128/95 135/99 O2 Sat by Pulse Oximetry 06/13/22 06/13/22 06/13/22 02:00 02:15 02:30 Temperature Pulse Rate 112 H 99 105 H Pulse Rate [ Quality Assurance Qa Lab Technician ] Respiratory 20 21 20 Rate Blood Pressure 135/99 123/92 123/92 O2 Sat by Pulse Oximetry 06/13/22 06/13/22 06/13/22 02:45 03:00 03:15 Temperature Pulse Rate 113 H 96 95 Pulse Rate [ Quality Assurance Qa Lab Technician ] Respiratory 20 20 18 Rate Blood Pressure 123/80 123/80 122/83 O2 Sat by Pulse 98 Oximetry 06/13/22 06/13/22 06/13/22 04:03 04:30 05:00 Temperature 98.5 F Pulse Rate 115 H 111 H 104 H Pulse Rate [ Quality Assurance Qa Lab Technician ] Respiratory 18 17 20 Rate Blood Pressure 123/80 123/80 135/92 O2 Sat by Pulse Oximetry 06/13/22 05:45 Temperature Pulse Rate 101 H Pulse Rate [ Quality Assurance Qa Lab Technician ] Respiratory 19 Rate Blood Pressure 131/94 O2 Sat by Pulse Oximetry Medical Decision Making - Medical Decision Making This patient is 21-year-old man presenting after having worsening of depressed mood and having taken an overdose of medications. The patient is admitted for further treatment for mood disorder with suicidal ideation. Was pt. sent in by a medical professional or institution (, PA, RISK SPECIALIST, urgent care, hospital, or correction...) When possible be specific @ -[No] Did you speak to anyone other than the patient for history (EMS, parent, family, police, friend...)? What history was obtained from this source @ -[No] Did you review nursing and triage notes (agree or disagree)? Why? @ -[I reviewed and agree with nursing and triage notes] Were old charts reviewed (outside hosp., previous admission, EMS record, old EKG, old radiological studies, urgent care reports/EKG's, correction records)? Report findings @ -[No old charts were reviewed] Differential Diagnosis (chest pain, altered mental status, abdominal pain women, abdominal pain men, vaginal bleeding, weakness, fever, dyspnea, syncope, headache, dizziness, GI bleed, back pain, seizure, CVA, palpatations, mental health, musculoskeletal)? @ -[Differential Mental Health Depression, anxiety, bipolar, psychosis, schizophrenia, borderline personality, situational depression, adjustment disorder, behavioral disorder, brain tumor, malingering, substance abuse, encephalopathy, medication reaction, dementia, hypothyroidism, degenerative neurologic disorder, lupus.... This is not meant to be all-inclusive list EKG interpreted by me (3pts min.). @ -[As above] X-rays interpreted by me (1pt min.). @ -[None done] CT interpreted by me (1pt min.). @ -[None done] U/S interpreted by me (1pt. min.). @ -[None done] What testing was considered but not performed or refused? (CT, X-rays, U/S, labs)? Why? @ -[None] What meds were considered but not given or refused? Why? @ -[None] Did you discuss the management of the patient with other professionals (professionals i.e. , PA, RISK SPECIALIST, lab, RT, psych nurse, social work job titles, geriatrics physician, teacher, first officer and flight instructor, housing case manager)? Give summary @ -[EPS personnel Was smoking cessation discussed for >3mins.? @ -[No] Was critical care preformed (if so, how long)? @ -[No] Were there social determinants of health that impacted care today? How? (Homelessness, low income, unemployed, alcoholism, drug addiction, transportation, low edu. Level, literacy, decrease access to med. care, fpc, rehab)? @ -[No] Was there de-escalation of care discussed even if they declined (Discuss DNR or withdrawal of care, Hospice)? DNR status @ -[No] What co-morbidities impacted this encounter? (DM, HTN, Smoking, COPD, CAD, Cancer, CVA, ARF, Chemo, Hep., AIDS, mental health diagnosis, sleep apnea, morbid obesity)? @ -[Mental health condition Was patient admitted / discharged? Hospital course, mention meds given and route, prescriptions, significant lab abnormalities, going to OR and other pertinent info. @ -[Patient is admitted Undiagnosed new problem with uncertain prognosis? @ -[No] Drug Therapy requiring intensive monitoring for toxicity (Heparin, Nitro, Insulin, Cardizem)? @ -[No] Were any procedures done? @ -[No] Diagnosis/symptom? @ -[Mood disorder, acute on chronic Medication overdose, acute Acute, or Chronic, or Acute on Chronic? @ -[default] Uncomplicated (without systemic symptoms) or Complicated (systemic symptoms)? @ -[Uncomplicated Side effects of treatment? @ -[No] Exacerbation, Progression, or Severe Exacerbation? @ -[No] Poses a threat to life or bodily function? How? (Chest pain, [place], NH, pneumonia, PE, COPD, DKA, ARF, appy, cholecystitis, CVA, Diverticulitis, Homicidal, Suicidal, threat to staff... and all critical care pts) @ -[Yes, untreated suicidal ideation may lead to further suicide attempt - Lab Data Result diagrams: 06/12/22 21:33 06/12/22 21:33 Lab Results 06/12/22 06/12/22 06/12/22 Range/Units 21:33 21:33 21:33 WBC 10.0 (3.8-10.6) k/uL RBC 5.13 (4.30-5.90) m/uL Hgb 14.9 (13.0-17.5) gm/dL Hct 43.2 (39.0-53.0) % MCV 84.2 (80.0-100.0) fL MCH 29.0 (25.0-35.0) pg MCHC 34.5 (31.0-37.0) g/dL RDW 12.9 (11.5-15.5) % Plt Count 336 (150-450) k/uL MPV 7.3 Neutrophils % 84 % Lymphocytes % 10 % Monocytes % 4 % Eosinophils % 1 % Basophils % 0 % Neutrophils # 8.4 H (1.3-7.7) k/uL Lymphocytes # 1.0 (1.0-4.8) k/uL Monocytes # 0.4 (0-1.0) k/uL Eosinophils # 0.1 (0-0.7) k/uL Basophils # 0.0 (0-0.2) k/uL Sodium 140 (137-145) mmol/L Potassium 4.1 (3.5-5.1) mmol/L Chloride 104 (98-107) mmol/L Carbon Dioxide 20 L (22-30) mmol/L Anion Gap 16 mmol/L BUN 9 (9-20) mg/dL Creatinine 0.71 (0.66-1.25) mg/dL Est GFR (CKD-EPI)AfAm >90 (>60 ml/min/1.73 sqM) Est GFR (CKD-EPI)NonAf >90 (>60 ml/min/1.73 sqM) Glucose 102 H (74-99) mg/dL Lactic Ac Sepsis Rflx Plasma Lactic Acid Ha 5.2 H* (0.7-2.0) mmol/L Calcium 8.9 (8.4-10.2) mg/dL Total Bilirubin 0.8 (0.2-1.3) mg/dL AST 36 (17-59) U/L ALT 49 (4-49) U/L Alkaline Phosphatase 62 (38-126) U/L Total Protein 7.4 (6.3-8.2) g/dL Albumin 4.7 (3.5-5.0) g/dL Urine Color Urine Appearance (Clear) Urine pH (5.0-8.0) Ur Specific [place] (1.001-1.035) Urine Protein (Negative) Urine Glucose (UA) (Negative) Urine Ketones (Negative) Urine Blood (Negative) Urine Nitrite (Negative) Urine Bilirubin (Negative) Urine Urobilinogen (<2.0) mg/dL Ur Leukocyte Esterase (Negative) Salicylates <1.0 mg/dL Urine Opiates Screen (NotDetected) Ur Oxycodone Screen (NotDetected) Urine Methadone Screen (NotDetected) Ur Propoxyphene Screen (NotDetected) Acetaminophen <10.0 ug/mL Ur Barbiturates Screen (NotDetected) U Tricyclic Antidepress (NotDetected) Ur Phencyclidine Scrn (NotDetected) Ur Amphetamines Screen (NotDetected) U Methamphetamines Scrn (NotDetected) U Benzodiazepines Scrn (NotDetected) [place] mmol/L Urine Cocaine Screen (NotDetected) U Marijuana (THC) Screen (NotDetected) Serum Alcohol <10 mg/dL Coronavirus (PCR) (Not Detectd) 06/12/22 06/12/22 06/12/22 Range/Units 21:53 22:05 23:30 WBC (3.8-10.6) k/uL RBC (4.30-5.90) m/uL Hgb (13.0-17.5) gm/dL Hct (39.0-53.0) % MCV (80.0-100.0) fL MCH (25.0-35.0) pg MCHC (31.0-37.0) g/dL RDW (11.5-15.5) % Plt Count (150-450) k/uL MPV Neutrophils % % Lymphocytes % % Monocytes % % Eosinophils % % Basophils % % Neutrophils # (1.3-7.7) k/uL Lymphocytes # (1.0-4.8) k/uL Monocytes # (0-1.0) k/uL Eosinophils # (0-0.7) k/uL Basophils # (0-0.2) k/uL Sodium (137-145) mmol/L Potassium (3.5-5.1) mmol/L Chloride (98-107) mmol/L Carbon Dioxide (22-30) mmol/L Anion Gap mmol/L BUN (9-20) mg/dL Creatinine (0.66-1.25) mg/dL Est GFR (CKD-EPI)AfAm (>60 ml/min/1.73 sqM) Est GFR (CKD-EPI)NonAf (>60 ml/min/1.73 sqM) Glucose (74-99) mg/dL Lactic Ac Sepsis Rflx Y Plasma Lactic Acid Ha (0.7-2.0) mmol/L Calcium (8.4-10.2) mg/dL Total Bilirubin (0.2-1.3) mg/dL AST (17-59) U/L ALT (4-49) U/L Alkaline Phosphatase (38-126) U/L Total Protein (6.3-8.2) g/dL Albumin (3.5-5.0) g/dL Urine Color Urine Appearance (Clear) Urine pH (5.0-8.0) Ur Specific [place] (1.001-1.035) Urine Protein (Negative) Urine Glucose (UA) (Negative) Urine Ketones (Negative) Urine Blood (Negative) Urine Nitrite (Negative) Urine Bilirubin (Negative) Urine Urobilinogen (<2.0) mg/dL Ur Leukocyte Esterase (Negative) Salicylates mg/dL Urine Opiates Screen Not Detected (NotDetected) Ur Oxycodone Screen Not Detected (NotDetected) Urine Methadone Screen Not Detected (NotDetected) Ur Propoxyphene Screen Not Detected (NotDetected) Acetaminophen ug/mL Ur Barbiturates Screen Not Detected (NotDetected) U Tricyclic Antidepress Not Detected (NotDetected) Ur Phencyclidine Scrn Not Detected (NotDetected) Ur Amphetamines Screen Not Detected (NotDetected) U Methamphetamines Scrn Not Detected (NotDetected) U Benzodiazepines Scrn Not Detected (NotDetected) [place] 0.2 mmol/L Urine Cocaine Screen Not Detected (NotDetected) U Marijuana (THC) Screen Not Detected (NotDetected) Serum Alcohol mg/dL Coronavirus (PCR) (Not Detectd) 06/12/22 06/13/22 06/13/22 Range/Units 23:30 00:20 01:23 WBC (3.8-10.6) k/uL RBC (4.30-5.90) m/uL Hgb (13.0-17.5) gm/dL Hct (39.0-53.0) % MCV (80.0-100.0) fL MCH (25.0-35.0) pg MCHC (31.0-37.0) g/dL RDW (11.5-15.5) % Plt Count (150-450) k/uL MPV Neutrophils % % Lymphocytes % % Monocytes % % Eosinophils % % Basophils % % Neutrophils # (1.3-7.7) k/uL Lymphocytes # (1.0-4.8) k/uL Monocytes # (0-1.0) k/uL Eosinophils # (0-0.7) k/uL Basophils # (0-0.2) k/uL Sodium (137-145) mmol/L Potassium (3.5-5.1) mmol/L Chloride (98-107) mmol/L Carbon Dioxide (22-30) mmol/L Anion Gap mmol/L BUN (9-20) mg/dL Creatinine (0.66-1.25) mg/dL Est GFR (CKD-EPI)AfAm (>60 ml/min/1.73 sqM) Est GFR (CKD-EPI)NonAf (>60 ml/min/1.73 sqM) Glucose (74-99) mg/dL Lactic Ac Sepsis Rflx Y Plasma Lactic Acid Ha 2.5 H* (0.7-2.0) mmol/L Calcium (8.4-10.2) mg/dL Total Bilirubin (0.2-1.3) mg/dL AST (17-59) U/L ALT (4-49) U/L Alkaline Phosphatase (38-126) U/L Total Protein (6.3-8.2) g/dL Albumin (3.5-5.0) g/dL Urine Color Yellow Urine Appearance Clear (Clear) Urine pH 6.5 (5.0-8.0) Ur Specific [place] 1.010 (1.001-1.035) Urine Protein Trace H (Negative) Urine Glucose (UA) Negative (Negative) Urine Ketones Negative (Negative) Urine Blood Negative (Negative) Urine Nitrite Negative (Negative) Urine Bilirubin Negative (Negative) Urine Urobilinogen <2.0 (<2.0) mg/dL Ur Leukocyte Esterase Negative (Negative) Salicylates mg/dL Urine Opiates Screen (NotDetected) Ur Oxycodone Screen (NotDetected) Urine Methadone Screen (NotDetected) Ur Propoxyphene Screen (NotDetected) Acetaminophen ug/mL Ur Barbiturates Screen (NotDetected) U Tricyclic Antidepress (NotDetected) Ur Phencyclidine Scrn (NotDetected) Ur Amphetamines Screen (NotDetected) U Methamphetamines Scrn (NotDetected) U Benzodiazepines Scrn (NotDetected) [place] mmol/L Urine Cocaine Screen (NotDetected) U Marijuana (THC) Screen (NotDetected) Serum Alcohol mg/dL Coronavirus (PCR) (Not Detectd) 06/13/22 Range/Units 04:14 WBC (3.8-10.6) k/uL RBC (4.30-5.90) m/uL Hgb (13.0-17.5) gm/dL Hct (39.0-53.0) % MCV (80.0-100.0) fL MCH (25.0-35.0) pg MCHC (31.0-37.0) g/dL RDW (11.5-15.5) % Plt Count (150-450) k/uL MPV Neutrophils % % Lymphocytes % % Monocytes % % Eosinophils % % Basophils % % Neutrophils # (1.3-7.7) k/uL Lymphocytes # (1.0-4.8) k/uL Monocytes # (0-1.0) k/uL Eosinophils # (0-0.7) k/uL Basophils # (0-0.2) k/uL Sodium (137-145) mmol/L Potassium (3.5-5.1) mmol/L Chloride (98-107) mmol/L Carbon Dioxide (22-30) mmol/L Anion Gap mmol/L BUN (9-20) mg/dL Creatinine (0.66-1.25) mg/dL Est GFR (CKD-EPI)AfAm (>60 ml/min/1.73 sqM) Est GFR (CKD-EPI)NonAf (>60 ml/min/1.73 sqM) Glucose (74-99) mg/dL Lactic Ac Sepsis Rflx Plasma Lactic Acid Ha (0.7-2.0) mmol/L Calcium (8.4-10.2) mg/dL Total Bilirubin (0.2-1.3) mg/dL AST (17-59) U/L ALT (4-49) U/L Alkaline Phosphatase (38-126) U/L Total Protein (6.3-8.2) g/dL Albumin (3.5-5.0) g/dL Urine Color Urine Appearance (Clear) Urine pH (5.0-8.0) Ur Specific [place] (1.001-1.035) Urine Protein (Negative) Urine Glucose (UA) (Negative) Urine Ketones (Negative) Urine Blood (Negative) Urine Nitrite (Negative) Urine Bilirubin (Negative) Urine Urobilinogen (<2.0) mg/dL Ur Leukocyte Esterase (Negative) Salicylates mg/dL Urine Opiates Screen (NotDetected) Ur Oxycodone Screen (NotDetected) Urine Methadone Screen (NotDetected) Ur Propoxyphene Screen (NotDetected) Acetaminophen ug/mL Ur Barbiturates Screen (NotDetected) U Tricyclic Antidepress (NotDetected) Ur Phencyclidine Scrn (NotDetected) Ur Amphetamines Screen (NotDetected) U Methamphetamines Scrn (NotDetected) U Benzodiazepines Scrn (NotDetected) [place] mmol/L Urine Cocaine Screen (NotDetected) U Marijuana (THC) Screen (NotDetected) Serum Alcohol mg/dL Coronavirus (PCR) Not Detected (Not Detectd) - EKG Data -: EKG Interpreted by Me EKG shows normal: sinus rhythm, axis (Normal), intervals (Normal), QRS complexes (There is an incomplete right bundle branch block.) Rate: tachycardia (Rate approximately 125 bpm) Disposition Clinical Impression: Overdose of medication, Mood disorder Disposition: ADMITTED IP TO THIS [facility] Condition: Fair Is patient prescribed a controlled substance at d/c from ED?: No
[2022-06-12] MEDS ORDERED: SODIUM CHLORIDE 0.9% 1,000 ML IV ONE (21:54)
[2022-06-12 21:56] LABS: AST 36 U/L (17-59); Acetaminophen <10.0 ug/mL; African American GFR (CKD) >90 (>60 ml/min/1.73 sqM); Albumin 4.7 g/dL (3.5-5.0); Alcohol <10 mg/dL; Alkaline Phosphatase 62 U/L (38-126); Anion Gap 16 mmol/L; Blood Urea Nitrogen 9 mg/dL (9-20); Calcium 8.9 mg/dL (8.4-10.2); Carbon Dioxide 20 mmol/L (22-30); Chloride 104 mmol/L (98-107); Glucose 102 mg/dL (74-99); Non-African American GFR(CKD) >90 (>60 ml/min/1.73 sqM); Potassium 4.1 mmol/L (3.5-5.1); Salicylate <1.0 mg/dL; Sodium 140 mmol/L (137-145); Total Bilirubin 0.8 mg/dL (0.2-1.3); Total Protein 7.4 g/dL (6.3-8.2)
[2022-06-12 22:04] LABS: Basophils % (A) 0 %; Eosinophils # (A) 0.1 k/uL (0-0.7); Eosinophils % (A) 1 %; HCT 43.2 % (39.0-53.0); HGB 14.9 gm/dL (13.0-17.5); Lymphocytes % (A) 10 %; MCHC 34.5 g/dL (31.0-37.0); MCV 84.2 fL (80.0-100.0); Mean Platelet Volume 7.3; Monocytes # (A) 0.4 k/uL (0-1.0); Monocytes % (A) 4 %; Neutrophils # (A) 8.4 k/uL (1.3-7.7); Neutrophils % (A) 84 %; Platelet Count 336 k/uL (150-450); RBC 5.13 m/uL (4.30-5.90); RDW 12.9 % (11.5-15.5)
[2022-06-12 22:05] LABS: ALT 49 U/L (4-49)
[2022-06-13 00:02] LABS: Amphetamine Screen,Urine Not Detected (NotDetected); Barbiturate Screen,Urine Not Detected (NotDetected); Benzodiazepines Screen,Urine Not Detected (NotDetected); Cocaine Screen,Urine Not Detected (NotDetected); Methadone Screen, Urine Not Detected (NotDetected); Opiate Screen,Urine Not Detected (NotDetected); Oxycodone Screen, Urine Not Detected (NotDetected); Phencyclidine Screen,Urine Not Detected (NotDetected); Tricyclic Antidepressant,Urine Not Detected (NotDetected); Urn Cannabinoid Scrn Not Detected (NotDetected)
[2022-06-13] MEDS ORDERED: ONDANSETRON 4 MG/2 ML VIAL IVP STA (00:21)
[2022-06-13 00:37] LABS: Appearance,Urine Clear (Clear); Bilirubin,Urine Negative (Negative); Blood,Urine Negative (Negative); Color,Urine Yellow; Glucose,Urine (UA) Negative (Negative); Ketones,Urine Negative (Negative); Leukocyte Esterase,Urine Negative (Negative); Nitrite,Urine Negative (Negative); PH, Urine 6.5 (5.0-8.0); Protein,Urine Trace (Negative); Urobilinogen,Urine <2.0 mg/dL (<2.0)
[2022-06-13 04:06] VITALS: TEMP 98.5
[2022-06-13 06:00] VITALS: BP 131/94; PULSE 101; RESP 19
[2022-06-13] MEDS ORDERED: SODIUM CHLORIDE 0.9% 500 ML 500 ML IV ONE (07:24)
[2022-06-13] MEDS ORDERED: SODIUM CHLORIDE 0.9% 1,000 ML IV SCH (07:30)
== END 2022-06-13 08:00 | disposition short-term general hospital (02) | DRG 885 ==
LOC: EC 21:10 → 3MHU 06-13 05:09
PROVIDERS: ADMIT Psychiatry & Neurology Psychiatry; ATTEND Psychiatry & Neurology Psychiatry
DX: F39 Unspecified mood [affective] disorder (principal); F32.A Depression, unspecified; R25.1 Tremor, unspecified; T43.212A Poisoning by selective serotonin and norepinephrine reuptake inhibitors, intentional self-harm, initial encounter; K21.9 Gastro-esophageal reflux disease without esophagitis; I45.10 Unspecified right bundle-branch block; F17.290 Nicotine dependence, other tobacco product, uncomplicated; Z20.822 Contact with and (suspected) exposure to COVID-19; Z79.899 Other long term (current) drug therapy
CPT/HCPCS: 36415; 51701; 80053; 80143; 80178; 80179; 80306; 80320; 81003; 82075; 83605; 85025; 87635; 93005; 96360; 96374; 99285

== ENCOUNTER 2022-06-15 16:43 | Inpatient (IN) | payer OTHER, MEDICAID ==
[2022-06-15] MEDS ORDERED: LORazepam 1 MG TAB PO PRN (17:46)
[2022-06-15] MEDS ORDERED: ACETAMINOPHEN TAB 325 MG TAB PO PRN (17:46)
[2022-06-15] MEDS ORDERED: MAGNESIUM HYDROXIDE 2,400 MG/10 ML CUP PO PRN (17:46)
[2022-06-15] MEDS ORDERED: MAG HYDROX/AL HYDROX/SIMETH 30 ML CUP PO PRN (17:46)
[2022-06-15] MEDS ORDERED: LORazepam 2 MG/ML INJ IM PRN (17:48)
[2022-06-15] MEDS ORDERED: NICOTINE 14MG/24HR PATCH TRANSDERM SCH (18:00)
--- NOTE | 2022-06-16 09:49 | P.CONS ---
History of Present Illness - History of Present Illness This is a pleasant 22 years old male who is known to my service as he was dis charged from the medical floor yesterday to the psych unit. Patient originally was admitted with depression and suicidal intention and attempt with overdose with Cymbalta, there was report of ingesting about 3600 of Cymbalta therefore he was transferred to the general medical floor 06/13-06/15. He was monitored for 48 hours before he was clinically stable. When I saw the today sitting in his bed, denies any specific symptoms. No chest pain dyspnea or palpitation, no headache dizziness weakness or numbness. No blurred vision or slurred speech. No change in urine or bowel habits, no diarrhea abdominal pain vomiting dysuria or urgency. Patient vitals are stable labs and imaging from yesterday and last admission were reviewed in details. He has unremarkable CBC, BMP, liver enzymes, creatinine kinase, urine analysis. Serum alcohol level was less than 10 and lithium less than 0.2. Patient also has been evaluated by neurologist in the medical floor and cleared for discharge. Review of Systems Review of systems CONSTITUTIONAL: No fever, no malaise, no fatigue. HEENT: No recent visual problems or hearing problems. Denied any sore throat. CARDIOVASCULAR: No orthopnea, PND, no palpitations, no syncope. PULMONARY: No shortness of breath, no cough, no hemoptysis. GASTROINTESTINAL: No diarrhea, no nausea, no vomiting, no abdominal pain. Normoa ctive bowel sounds. NEUROLOGICAL: No headaches, no weakness, no numbness. HEMATOLOGICAL: Denies any bleeding or petechiae. GENITOURINARY: Denies any burning micturition, frequency, or urgency. MUSCULOSKELETAL/RHEUMATOLOGICAL: Denies any joint pain, swelling, or any muscle pain. ENDOCRINE: Denies any polyuria or polydipsia. Past Medical History Past Medical History: GERD/Reflux Additional Past Medical History / Comment(s): Acid reflux History of Any Multi-Drug Resistant Organisms: None Reported Past Surgical History: No Surgical Hx Reported Additional Past Surgical History / Comment(s): "tubes in ears" Past Psychological History: Depression Smoking Status: Vaper Past Alcohol Use History: None Reported Past Drug Use History: None Reported Medications and Allergies Home Medications Medication Instructions Recorded Confirmed Type DULoxetine HCL [Cymbalta] 60 mg PO BID 15 Days #30 cap 04/30/22 06/15/22 Rx Ergocalciferol (Vitamin D2) 1,250 mcg PO Q7D 06/12/22 06/15/22 History [Drisdol (50,000 Iu)] [place] Carbonate 600 mg PO DAILY 06/12/22 06/15/22 History Pantoprazole [Protonix] 40 mg PO DAILY 06/12/22 06/15/22 History Allergies Allergy/AdvReac Type Severity Reaction Status Date / Time No Known Allergies Allergy Verified 06/12/22 21:51 Physical Exam Vitals: Vital Signs Temp Pulse Resp BP Pulse Ox 06/15/22 18:24 98.0 F 94 16 121/73 98 Intake and Output 06/15/22 06/16/22 06/16/22 22:59 06:59 14:59 Other: Weight 63.1 kg GENERAL: The patient is alert and oriented x3, not in any acute distress. Well developed, well nourished. HEENT: Pupils are round and equally reacting to light. EOMI. No scleral icterus. No conjunctival pallor. Normocephalic, atraumatic. No pharyngeal erythema. No thyromegaly. CARDIOVASCULAR: S1 and S2 present. No murmurs, rubs, or gallops. PULMONARY: Chest is clear to auscultation, no wheezing or crackles. ABDOMEN: Soft, nontender, nondistended, normoactive bowel sounds. No palpable organomegaly. MUSCULOSKELETAL: No joint swelling or deformity. EXTREMITIES: No cyanosis, clubbing, or pedal edema. NEUROLOGICAL: Gross neurological examination did not reveal any focal deficits. SKIN: No rashes. no petechiae. Assessment and Plan Assessment: Severe depression with suicidal ideation Drug overdose with Cymbalta 3600 m Tremor, resolved Plan: Continue with psychiatric management as per psychiatry primary team Monitoring the patient Other than that we recommend patient follow up with PCP in one week after discharge and he was instructed with the same and he agrees Thank you for consulting
[2022-06-16] MEDS ORDERED: haloperidoL 5 MG TAB PO PRN (12:08)
[2022-06-16] MEDS ORDERED: HALOPERIDOL LACTATE 5 MG/ML 1 ML VIAL IM PRN (12:08)
--- NOTE | 2022-06-16 13:21 | P.HP ---
Psychiatric H&P - . H&P Date: 06/16/22 History & Physical: Allergies Allergy/AdvReac Type Severity Reaction Status Date / Time No Known Allergies Allergy Verified 06/12/22 21:51 Vital Signs Temp 98.0 F 06/15/22 18:24 Pulse 94 06/15/22 18:24 Resp 16 06/15/22 18:24 BP 121/73 06/15/22 18:24 Pulse Ox 98 06/15/22 18:24 FiO2 Intake & Output 06/15/22 06/15/22 06/16/22 06:59 18:59 06:59 Weight 69 kg 63.1 kg 06/16/22 00:38 IDENTIFYING DATA: Patient is a 21 year old single unemployed male who lives with his parents. HISTORY OF PRESENT ILLNESS: The patient presented initially to the hospital on 06/12/22. as per Dr Hardy consultation note "Per ER notes, This patient is a 21-year-old man who presents to have evaluation worsening depression and suicidal ideation. This been going on and getting worse now over number days. The patient also states that he tried to overdose this morning around 5 AM. Patient took a total of 3600 mg of Cymbalta. Patient denies coingestants. He states that he feels a bit tremulous now but otherwise denying symptoms related." Poison control control was contacted by ER, and patient was medically cleared by ER. He was admitted to the psychiatry unit briefly, however on arrival to the psychiatry unit it was noted patient could not ambulate due to unsteady gait so he was immediately transferred to the medical unit for further evaluation and treatment." Dr Hardy consultation note also states that "On my evaluation on 06/13/22, patient was found asleep in bed with sitter at bedside to maintain safety. On assessment he is displaying signs of serotonin syndrome, including restlessness, tachycardia, dilated pupils, myoclonus, tremors, increased reflexes lower extremities. He has received one dose of Ativan 1 mg. He presents with depressed mood and depressed affect. He endorses suicidal thoughts with intent, and states that he thinks he may try to attempt suicide again. He reports depression, anhedonia, decreased motivation, decreased energy. He appears disheveled with pale skin. He admits to feeling lonely and isolated, feels he lacks a reason, a purpose, a goal. He reports disappointment that his suicide attempt was not successful. At this time patient endorses suicidal but not homicidal ideations. Patient denies any auditory, visual hallucinations, and denies any paranoia or delusions. Patients admits to using history of alcohol and marijuana use, not recently. He reports he used to binge drink but reports his last drug of alcohol was in April 2022 when he overdosed at that time. He reports his last use of marijuana was in July 2021. He denies smoking cigarettes but does sleep nicotine." Patient was discharged and cleared medically after being given cyproheptadine and ativan to treat serotonin syndrome and transferred back to the MHU yesterday. Patient was seen in his room this afternoon and was laying in bed sleeping. he was approached by designer/writer to be interviewed and he declined to speak with designer/writer in the office today and appeared to be gaurded and evasive. he had poor hygiene and grooming, concrete, poverty of contnet. poor insight and judgment. he claims that he has not had any recent stressors at home and andreina overdosed on his cymbalta sytating "I just side sitting there and took it". He states that he did not plan this in advance however did state that he took 60 pills. He was minimizing his anxiety and also his mood. He does state that he has a chronic history of depression and suicidal thoughts and is impulsive. States that his sleep and appetite are "fine". He was very flat in his affect today. He showed poor motivation. At this time is admitting to suicidal thoughts however no intent or plan, denying any homicidal ideations. Denies any auditory or visual hallucinations. PAST PSYCHIATRIC HISTORY: He was recently discharged from the inpatient psychiatry unit on 04/30/2022 on ball to 60 mg twice daily and Lithobid 450 mg daily. He reports this was his third suicide attempt by overdose. He reports his first suicide attempt was in April 2020 by overdose on vodka and Xanax. His second suicide attempt was by overdose on Klonopin, Wellbutrin and alcohol in April 2022. This was his third suicide attempt by overdose on Cymbalta on 06/12/22. He has been linked with [facility] in [place] and last seen for evaluation and follow up with his nurse practitioner on 06/08. PAST MEDICAL HISTORY: Additional Past Medical History / Comment(s): Acid reflux History of Any Multi-Drug Resistant Organisms: None Reported Past Surgical History: No Surgical Hx Reported Past Psychological History: Depression Smoking Status: Vaper Past Alcohol Use History: None Reported Past Drug Use History: None Reported ALLERGIES: as per EMR. CHEMICAL DEPENDENCY HISTORY: as per HPI. FAMILY PSYCHIATRIC/SUBSTANCE USE HISTORY: Brother has depression SOCIAL HISTORY: He was born and raised in [facility]. He completed high school and did 1 year of college at [employer] studying engineering but dropped out after becoming depressed this summer following his freshman year. He denies any legal history. He lives with his parents. He tends to isolate to his home where he spends a lot of time playing video games. He reports he has grown away from most of his friends since leaving college. MENTAL STATUS EXAM: General Appearance: Patient appears to be stated age, disheveled with pale skin and long messy hair. Fair hygiene and grooming, wearing hospital gown with poor eye contact. Behavior: Patient is calmly lying in bed without any agitated behavior. no tremors observed. Speech: Patient's speech is fluent and non-pressured, non-spontaneous. cocnrete, monotone Mood/Affect: Patient reports their mood is "depressed", affect is congruent and flat Suicidality/Homicidality: Patient denies having any suicidal or homicidal ideation intent or plan. Perceptions: Patient denies any visual hallucinations and denies any auditory hallucinations Though content/process: poverty of content, concrete. no paranoia or delusions. Memory and concentration: AOX3, grossly intact for the purposes of this session. Can spell "WORLD" backwards Judgment and insight: poor/impulsive. IMPRESSIONS: Status post suicide attempt by overdose on Cymbalta Major depressive disorder, recurrent, severe without psychotic features. Alcohol use disorder STRENGTHS/WEAKNESSES: strength is that patient is resilient. Weakness is that patient has poor judgment and is impulsive INTELLECT: average PLAN: -Patient is admitted under voluntary status to MHU for stabilization of psychiatric symptoms and safety. he is currently on a deferral. Patient has not signed adult voluntary form and is placed in patient's chart. -Medications : Will start patient on prozac 20 mg daily for mood/anxiety, trazodone 50 mg qhs prn for insomnia, lithobid 450 mg qhs for suicidal thoughts/mood adjunct. -vistaril and Haldol PRN for agitation/aggression -Patient was counselled on substance abuse and desired to cut back on use -Patient was informed of the risks, benefits and side effects of the medication -Internal Medicine consult to perform medical evaluation and physical. -NRT - not needed as patient does not smoke -SW on board for discharge planning. Encourage patient to participate in groups to work on coping skills. patient is high risk for self harm due to his impulsive nature and little remorse, not future oriented. will need to involve mother, [facility] and possibly ACT team into his care. Sw to help coordinate a family meeting coming up once patient is improving.
[2022-06-16] MEDS: LITHIUM CARBONATE ER 450 MG TABLET.ER PO SCH (21:18)
[2022-06-16] MEDS: traZODone HCL 50 MG TAB PO PRN (21:18)
[2022-06-17] MEDS: FLUoxetine HCL 20 MG CAP PO SCH (09:27)
[2022-06-17] MEDS: PANTOPRAZOLE 40 MG TABLET PO SCH (09:28)
[2022-06-17] MEDS: ERGOCALCIFEROL 1,250 MCG (50,000 IU) CAPSULE PO SCH (09:28)
--- NOTE | 2022-06-17 12:05 | P.PN ---
Progress Note - Text Progress Note Date: 06/17/22 Interval History: Patient was seen playing Jenga during activities group with another patient and was directable and agreeable to speak with staff writer in the office. Patient continues to have his hair covering most of his face. He continues to be fairly concrete and has a monotone voice. He states that he is feeling "all right" and was minimizing his depression and anxiety. He continues to state that he does not know why he attempted to overdose and kill himself. Although he does state that he does not have suicidal thoughts at this time however is stating that he sees no point in living any longer. When asked about the future patient claims that he does not want to work and does not want to go back to school and has no plans for the future. He claims that he slept fairly last night, has a fair appetite. Very poor insight and judgment. At this time patient denies any suicidal or homical ideations, intent or plan. Patient denies any auditory, visual hallucinations and denies any paranoia or delusions. Patient denies any side effects from the medications and has been compliant with meds. Mental Status Exam: General Appearance: Patient appears to be stated age, disheveled with pale skin and long hair covering most of his face. Fair hygiene and grooming, wearing hospital gown with improving eye contact. Behavior: Patient is sitting in the chair without any agitated behavior. Speech: Patient's speech is fluent and non-pressured, non-spontaneous. cocnrete, monotone Mood/Affect: Patient reports their mood is "ok i guess", affect is congruent and flat Suicidality/Homicidality: Patient denies having any suicidal or homicidal ideation intent or plan. Perceptions: Patient denies any visual hallucinations and denies any auditory hallucinations Though content/process: poverty of content, concrete. no paranoia or delusions. no future orientation Memory and concentration: AOX3, grossly intact for the purposes of this session Judgment and insight: poor/impulsive IMPRESSIONS: Status post suicide attempt by overdose on Cymbalta Major depressive disorder, recurrent, severe without psychotic features. Alcohol use disorder PLAN: -Patient is admitted under voluntary status to MHU for stabilization of psychiatric symptoms and safety. he is currently on a deferral. Patient has not signed adult voluntary form and is placed in patient's chart. -Medications : prozac 20 mg daily for mood/anxiety, trazodone 50 mg qhs prn for insomnia, lithobid 450 mg qhs for suicidal thoughts/mood adjunct. -vistaril and Haldol PRN for agitation/aggression -NRT - not needed as patient does not smoke -SW on board for discharge planning. Encourage patient to participate in groups to work on coping skills. patient is high risk for self harm due to his impulsive nature and little remorse, not future oriented. family meeting set for tomorrow at 11am. plan to increase services to him and hopefully refer onto [facility] program.
[2022-06-17] MEDS: LITHIUM CARBONATE ER 450 MG TABLET.ER PO SCH (21:21)
[2022-06-18] MEDS: PANTOPRAZOLE 40 MG TABLET PO SCH (08:25)
[2022-06-18] MEDS: FLUoxetine HCL 20 MG CAP PO SCH (08:25)
--- NOTE | 2022-06-18 09:57 | P.PN ---
Progress Note - Text Progress Note Date: 06/18/22 Interval History: Patient was seen participating in groups this morning and was directable and a greeable to speak with customs entry writer in the office. Patient continues to have his hair covering most of his face. Patient states that he felt off-balance last night but was able to sleep fairly throughout the night. He did not need to take trazodone last night. He states that he feels "okay" today and states that his depression is improving. He states that he does not have anxiety this morning. He asked several question about the dosing of his lithium and the type of lithium that he is taking. He claims that he would prefer to take it once a day and wanted to take it in the morning. Claims that his appetite is gradually improving. We spoke about needing to have a family meeting today which she is okay with. He continues to be fairly concrete and has a monotone voice. Mildly improving insight and judgment. At this time patient denies any suicidal or homical ideations, intent or plan. Patient denies any auditory, visual hallucinations and denies any paranoia or delusions. Patient denies any side effects from the medications and has been compliant with meds. Mental Status Exam: General Appearance: Patient appears to be stated age, disheveled with pale skin and long hair covering most of his face. Fair hygiene and grooming, wearing hospital gown with improving eye contact. Behavior: Patient is sitting in the chair without any agitated behavior. Speech: Patient's speech is fluent and non-pressured, non-spontaneous. cocnrete, monotone Mood/Affect: Patient reports their mood is "a bit better", affect is congruent and flat, improving mildly Suicidality/Homicidality: Patient denies having any suicidal or homicidal ideation intent or plan. Perceptions: Patient denies any visual hallucinations and denies any auditory hallucinations Though content/process: poverty of content, concrete. no paranoia or delusions. no future orientation Memory and concentration: AOX3, grossly intact for the purposes of this session Judgment and insight: chronically poor/impulsive, improving mildly IMPRESSIONS: Status post suicide attempt by overdose on Cymbalta Major depressive disorder, recurrent, severe without psychotic features. Alcohol use disorder PLAN: -Patient is admitted under voluntary status to MHU for stabilization of psychiatric symptoms and safety. he is currently on a deferral. Patient has not signed adult voluntary form and is placed in patient's chart. -Medications : increase prozac 40 mg daily for mood/anxiety, trazodone 50 mg qhs prn for insomnia, change lithobid 450 mg to daily for suicidal thoughts/mood adjunct. check lithium level over the weekend -vistaril and Haldol PRN for agitation/aggression -NRT - not needed as patient does not smoke -SW on board for discharge planning. Encourage patient to participate in groups to work on coping skills. patient is high risk for self harm due to his impulsive nature and little remorse, not future oriented. family meeting set for today at 11am. plan to increase services to him and hopefully refer onto [facility] program. likely discharge next week
[2022-06-18] MEDS: LITHIUM CARBONATE ER 450 MG TABLET.ER PO SCH (10:22)
[2022-06-19] MEDS: LITHIUM CARBONATE ER 450 MG TABLET.ER PO SCH (08:28)
[2022-06-19] MEDS: PANTOPRAZOLE 40 MG TABLET PO SCH (08:29)
[2022-06-19] MEDS ORDERED: FLUoxetine HCL 20 MG CAP PO SCH (09:00)
--- NOTE | 2022-06-19 11:32 | P.PN ---
Progress Note - Text Progress Note Date: 06/19/22 Interval History: Patient was seen today laying in his bed and was directable and agreeable to s peak with policy writer in the office. Patient continues to have his hair covering most of his face. Patient continues to be fairly concrete and superficial in some of his answers. he denied any overnight complaints and claims that he slept fairly. states that he did go to most groups yesterday. we spoke ore about the family meeting which took place yesterday and states that he is now agreeable to go to the partial program. He states that he does not have anxiety this morning. Mildly improving insight and judgment. At this time patient denies any suicidal or homical ideations, intent or plan. Patient denies any auditory, visual hallucinations and denies any paranoia or delusions. Patient denies any side effects from the medications and has been compliant with meds. Mental Status Exam: General Appearance: Patient appears to be stated age, disheveled with pale skin and long hair covering most of his face. Fair hygiene and grooming, wearing hospital gown with improving eye contact. Behavior: Patient is sitting in the chair without any agitated behavior. Speech: Patient's speech is fluent and non-pressured, non-spontaneous. cocnrete, monotone Mood/Affect: Patient reports their mood is "alright", affect is congruent and flat, improving mildly Suicidality/Homicidality: Patient denies having any suicidal or homicidal ideation intent or plan. Perceptions: Patient denies any visual hallucinations and denies any auditory hallucinations Though content/process: poverty of content, concrete. no paranoia or delusions. little future orientation Memory and concentration: AOX3, grossly intact for the purposes of this session Judgment and insight: chronically poor/impulsive, improving mildly IMPRESSIONS: Status post suicide attempt by overdose on Cymbalta Major depressive disorder, recurrent, severe without psychotic features. Alcohol use disorder PLAN: -Patient is admitted under voluntary status to MHU for stabilization of psychiatric symptoms and safety. he is currently on a deferral. Patient has not signed adult voluntary form and is placed in patient's chart. -Medications : increase prozac from 40 mg to 60 mg daily for mood/anxiety over the weekend, trazodone 50 mg qhs prn for insomnia, lithobid 450 mg to daily for suicidal thoughts/mood adjunct. check lithium level wednesday morning. -vistaril and Haldol PRN for agitation/aggression -NRT - not needed as patient does not smoke -SW on board for discharge planning. Encourage patient to participate in groups to work on coping skills. patient is high risk for self harm due to his impulsive nature and little remorse. family meeting took place on 06/18 and discussed his care and increased services from [facility] and also parents and SW working to get patient into partial program. likely discharge next week
[2022-06-19] MEDS: SENNOSIDES-DOCUSATE SODIUM 1 EACH TAB PO SCH (14:11)
[2022-06-20] MEDS: PANTOPRAZOLE 40 MG TABLET PO SCH (08:29)
[2022-06-20] MEDS: SENNOSIDES-DOCUSATE SODIUM 1 EACH TAB PO SCH (08:29)
[2022-06-20] MEDS: LITHIUM CARBONATE ER 450 MG TABLET.ER PO SCH (08:29)
[2022-06-20] MEDS ORDERED: FLUoxetine HCL 20 MG CAP PO ONE ×2 (09:00)
--- NOTE | 2022-06-20 13:31 | P.PN ---
Progress Note - Text Progress Note Date: 06/20/22 Interval History: Patient was seen today laying in his bed and was directable and agreeable to s peak with greeting card writer bedside. Patient continues to have his hair covering most of his face. Patient continues to be fairly concrete and superficial in some of his answers. He states that he has intermittent suicidal ideation outpatient and was impulsive when he overdosed on Cymbalta. He does not demonstrate understanding into the triggers for suicidal ideation or the attempt. He is nonchalant as he describes having taken Cymbalta and being surprised at waking up. He also says that alcohol is not a problematic part of his life. He reports sleeping well and having a fair appetite. At this time patient denies any suicidal or homicidal ideation, intent or plan. Patient denies any auditory, visual hallucinations and denies any paranoia or delusions. Patient denies any side effects from the medications and has been compliant with meds. Mental Status Exam: General Appearance: Patient appears to be stated age, disheveled with pale skin and long hair covering most of his face. Fair hygiene and grooming, wearing hospital gown with improving eye contact. Behavior: Patient is sitting in the chair without any agitated behavior. Speech: Patient's speech is fluent and non-pressured, non-spontaneous. concrete, monotone Mood/Affect: Patient reports their mood is "alright", affect is congruent and flat, improving mildly Suicidality/Homicidality: Patient denies having any suicidal or homicidal ideation intent or plan. Perceptions: Patient denies any visual hallucinations and denies any auditory hallucinations Though content/process: poverty of content, concrete. no paranoia or delusions. little future orientation Memory and concentration: AOX3, grossly intact for the purposes of this session Judgment and insight: chronically poor/impulsive IMPRESSIONS: Status post suicide attempt by overdose on Cymbalta Major depressive disorder, recurrent, severe without psychotic features. Alcohol use disorder Cluster B traits PLAN: -Patient is admitted under voluntary status to MHU for stabilization of psychiatric symptoms and safety. he is currently on a deferral. Patient has not signed adult voluntary form and is placed in patient's chart. -Medications : Continue prozac 60 mg daily for mood/anxiety over the weekend, trazodone 50 mg qhs prn for insomnia, lithobid 450 mg to daily for suicidal thoughts/mood adjunct. check lithium level wednesday morning. -vistaril and Haldol PRN for agitation/aggression -NRT - not needed as patient does not smoke -SW on board for discharge planning. Encourage patient to participate in groups to work on coping skills. patient is high risk for self harm due to his impulsive nature and little remorse. family meeting took place on 06/18 and discussed his care and increased services from [facility] and also parents and SW working to get patient into partial program. likely discharge next week
[2022-06-21 06:50] LABS: Basophils % (A) 1 %; Eosinophils # (A) 0.3 k/uL (0-0.7); Eosinophils % (A) 6 %; HCT 45.5 % (39.0-53.0); HGB 14.3 gm/dL (13.0-17.5); Lymphocytes # (A) 1.5 k/uL (1.0-4.8); Lymphocytes % (A) 30 %; MCH 27.6 pg (25.0-35.0); MCHC 31.5 g/dL (31.0-37.0); MCV 87.7 fL (80.0-100.0); Mean Platelet Volume 6.9; Monocytes # (A) 0.3 k/uL (0-1.0); Monocytes % (A) 5 %; Neutrophils # (A) 2.9 k/uL (1.3-7.7); Neutrophils % (A) 56 %; Platelet Count 315 k/uL (150-450); RBC 5.18 m/uL (4.30-5.90); RDW 12.9 % (11.5-15.5); WBC 5.2 k/uL (3.8-10.6)
[2022-06-21 07:00] LABS: ALT 35 U/L (4-49); AST 27 U/L (17-59); African American GFR (CKD) >90 (>60 ml/min/1.73 sqM); Albumin 4.3 g/dL (3.5-5.0); Alkaline Phosphatase 52 U/L (38-126); Anion Gap 8 mmol/L; Blood Urea Nitrogen 11 mg/dL (9-20); Calcium 8.8 mg/dL (8.4-10.2); Carbon Dioxide 32 mmol/L (22-30); Chloride 101 mmol/L (98-107); Glucose 92 mg/dL (74-99); Lithium 0.3 mmol/L; Non-African American GFR(CKD) >90 (>60 ml/min/1.73 sqM); Potassium 4.7 mmol/L (3.5-5.1); Sodium 141 mmol/L (137-145); Total Bilirubin 0.6 mg/dL (0.2-1.3); Total Protein 6.9 g/dL (6.3-8.2)
[2022-06-21] MEDS: SENNOSIDES-DOCUSATE SODIUM 1 EACH TAB PO SCH (08:19)
[2022-06-21] MEDS: LITHIUM CARBONATE ER 450 MG TABLET.ER PO SCH (08:19)
[2022-06-21] MEDS: FLUoxetine HCL 20 MG CAP PO SCH (08:19)
[2022-06-21] MEDS: PANTOPRAZOLE 40 MG TABLET PO SCH (08:19)
--- NOTE | 2022-06-21 12:50 | P.PN ---
Progress Note - Text Progress Note Date: 06/21/22 Interval History: Patient was seen today laying in his bed and was directable and agreeable to s peak with customs entry writer bedside. Patient continues to be fairly concrete and superficial in some of his answers. He states that he spoke with his family and that they express concern over his suicide attempt. He states that while he cares about his family members, he also does not fully care about their concern. He says he continues to have suicidal ideation and does not believe that he needs to live. He is currently not future oriented and is unable to recognize positive things in his life. He endorses feeling empty on the inside. Discussed dialectic behavior therapy and provided patient with handouts regarding it. He reports sleeping well (although feels it is difficult sometimes with hospital staff checking in on him) and having a fair appetite. At this time patient denies any suicidal or homicidal ideation, intent or plan. Patient denies any auditory, visual hallucinations and denies any paranoia or delusions. Patient denies any side effects from the medications and has been compliant with meds. Mental Status Exam: General Appearance: Patient appears to be stated age, disheveled with pale skin. Fair hygiene and grooming, wearing hospital gown with improving eye contact. Behavior: Patient is sitting in the chair without any agitated behavior. Speech: Patient's speech is fluent and non-pressured, non-spontaneous. concrete, monotone Mood/Affect: Patient reports their mood is "fine", affect is congruent and flat, improving mildly Suicidality/Homicidality: Patient denies having any suicidal or homicidal ideation intent or plan. Perceptions: Patient denies any visual hallucinations and denies any auditory hallucinations Though content/process: poverty of content, concrete. no paranoia or delusions. little future orientation Memory and concentration: AOX3, grossly intact for the purposes of this session Judgment and insight: chronically poor/impulsive IMPRESSIONS: Status post suicide attempt by overdose on Cymbalta Major depressive disorder, recurrent, severe without psychotic features. Alcohol use disorder Cluster B traits PLAN: -Patient is admitted under voluntary status to MHU for stabilization of psychiatric symptoms and safety. he is currently on a deferral. Patient has not signed adult voluntary form and is placed in patient's chart. -Medications : Continue prozac 60 mg daily for mood/anxiety over the weekend, trazodone 50 mg qhs prn for insomnia, lithobid 450 mg to daily for suicidal thoughts/mood adjunct. - Li level 0.3 on 06/21 -Provided intro to DBT handouts and strongly encouraged for patient to pursue this outpatient. -vistaril and Haldol PRN for agitation/aggression -NRT - not needed as patient does not smoke -SW on board for discharge planning. Encourage patient to participate in groups to work on coping skills. patient is high risk for self harm due to his impulsive nature and little remorse. family meeting took place on 06/18 and discussed his care and increased services from [facility] and also parents and SW working to get patient into partial program. likely discharge next week
[2022-06-22] MEDS: SENNOSIDES-DOCUSATE SODIUM 1 EACH TAB PO SCH (08:33)
[2022-06-22] MEDS: PANTOPRAZOLE 40 MG TABLET PO SCH (08:34)
[2022-06-22] MEDS: LITHIUM CARBONATE ER 450 MG TABLET.ER PO SCH (08:35)
[2022-06-22] MEDS: FLUoxetine HCL 20 MG CAP PO SCH (08:35)
--- NOTE | 2022-06-22 10:26 | P.PN ---
Progress Note - Text Progress Note Date: 06/22/22 Interval History: Patient was seen today sitting in on group and was directable and agreeable to speak with board writer in the office. Patient appears to have mild improvement in his affect today. His hair was tied to back today and in a bun. He states that he is doing "okay" continues to be fairly concrete and constricted. He claims that he has been talking with his mom over the phone however was not able to endorse much of their conversation. He states that the partial hospitalization program will be about "$400" a day and states that they cannot afford it. He continues to have poor self reflection back on what had occurred on his overdose. He states that he is trying to go to groups and has been up for meals. Mildly improving insight and judgment. At this time patient denies any suicidal or homical ideations, intent or plan. Patient denies any auditory, visual hallucinations and denies any paranoia or delusions. Patient denies any side effects from the medications and has been compliant with meds. States that he is sleeping a bit better last night. Mental Status Exam: General Appearance: Patient appears to be stated age, pale skin and long hair tied back. Fair hygiene and grooming, wearing hospital gown with improving eye contact. Behavior: Patient is sitting in the chair without any agitated behavior. Attempts to cooperate. Speech: Patient's speech is fluent and non-pressured, non-spontaneous. cocnrete, monotone Mood/Affect: Patient reports their mood is "alright", affect is congruent and improving mildly Suicidality/Homicidality: Patient denies having any suicidal or homicidal ideation intent or plan. Perceptions: Patient denies any visual hallucinations and denies any auditory hallucinations Though content/process: poverty of content, concrete. no paranoia or delusions. More future oriented today. Memory and concentration: AOX3, grossly intact for the purposes of this session Judgment and insight: chronically poor/impulsive, improving mildly IMPRESSIONS: Status post suicide attempt by overdose on Cymbalta Major depressive disorder, recurrent, severe without psychotic features. Alcohol use disorder PLAN: -Patient is admitted under voluntary status to MHU for stabilization of psychiatric symptoms and safety. he is currently on a deferral. Patient has not signed adult voluntary form and is placed in patient's chart. -Medications : increase prozac 80 mg daily for mood/anxiety, trazodone 50 mg qhs prn for insomnia, lithobid 450 mg to daily for suicidal thoughts/mood adjunct. lithium level - 0.4 -vistaril and Haldol PRN for agitation/aggression -NRT - not needed as patient does not smoke -SW on board for discharge planning. Encourage patient to participate in groups to work on coping skills. patient is high risk for self harm due to his impulsive nature and little remorse. family meeting took place on 06/18 and discussed his care and increased services from [facility]. explored partial program however due to high expesnse and not being covered by insurance family opted to not go ahead with that plan. likely discharge 1-2 days back home with increased [facility] services and pill box.
[2022-06-22] MEDS: traZODone HCL 50 MG TAB PO PRN (20:26)
[2022-06-23] MEDS: PANTOPRAZOLE 40 MG TABLET PO SCH (08:17)
[2022-06-23] MEDS: SENNOSIDES-DOCUSATE SODIUM 1 EACH TAB PO SCH (08:17)
[2022-06-23] MEDS: FLUoxetine HCL 20 MG CAP PO SCH (08:17)
[2022-06-23] MEDS: LITHIUM CARBONATE ER 450 MG TABLET.ER PO SCH (08:17)
[2022-06-23] MEDS ORDERED: traZODone HCL 100 MG TAB PO PRN (09:54)
--- NOTE | 2022-06-23 09:59 | P.PN ---
Progress Note - Text Progress Note Date: 06/23/22 Interval History: Patient was seen today sitting in on group and was directable and agreeable to speak with automatic typewriter inspector in the office. Patient appears to have mild improvement in his affect today however continues to be fairly constricted. He states that he is doing "a bit better" however continues to be fairly concrete. He states that he still has not really thought about the consequences of the overdose and a suicide attempt. He states that his family and him cannot afford to pay for the partial hospitalization program as it will be $400 a day. He is okay with having increased [facility] services and most likely a pillbox through them. He claims that his mood and anxiety. Improving. We spoke about his sleep and states that he was broken up and he was okay with having his trazodone increased. Prozac was increased this morning. He states that he is trying to go to groups and has been up for meals. At this time patient denies any suicidal or homical ideations, intent or plan. Patient denies any auditory, visual hallucinations and denies any paranoia or delusions. Patient denies any side effects from the medications and has been compliant with meds Mental Status Exam: General Appearance: Patient appears to be stated age, pale skin and long hair tied back. Fair hygiene and grooming, wearing hospital gown with improving eye contact. Behavior: Patient is sitting in the chair without any agitated behavior. Attempts to cooperate. Speech: Patient's speech is fluent and non-pressured, non-spontaneous. cocnrete, monotone Mood/Affect: Patient reports their mood is "ok", affect is congruent and improving mildly Suicidality/Homicidality: Patient denies having any suicidal or homicidal ideation intent or plan. Perceptions: Patient denies any visual hallucinations and denies any auditory hallucinations Though content/process: poverty of content, concrete. no paranoia or delusions. More future oriented today. Memory and concentration: AOX3, grossly intact for the purposes of this session Judgment and insight: chronically poor/impulsive, improving mildly IMPRESSIONS: Status post suicide attempt by overdose on Cymbalta Major depressive disorder, recurrent, severe without psychotic features. Alcohol use disorder PLAN: -Patient is admitted under voluntary status to MHU for stabilization of psychiatric symptoms and safety. he is currently on a deferral. Patient has not signed adult voluntary form and is placed in patient's chart. -Medications : prozac 80 mg daily for mood/anxiety, increase trazodone 100 mg qhs prn for insomnia, lithobid 450 mg to daily for suicidal thoughts/mood adjunct. lithium level - 0.4 on 06/21 -vistaril and Haldol PRN for agitation/aggression -NRT - not needed as patient does not smoke -SW on board for discharge planning. Encourage patient to participate in groups to work on coping skills. patient is high risk for self harm due to his impulsive nature and little remorse. family meeting took place on 06/18 and discussed his care and increased services from [facility]. explored partial program however due to high expesnse and not being covered by insurance family opted to not go ahead with that plan. likely discharge tomorrow back home with increased [facility] services and pill box.
[2022-06-24 06:52] VITALS: BP 101/56; PULSE 76; RESP 14; TEMP 97.7
[2022-06-24] MEDS: PANTOPRAZOLE 40 MG TABLET PO SCH (08:54)
[2022-06-24] MEDS: FLUoxetine HCL 20 MG CAP PO SCH (08:54)
[2022-06-24] MEDS: ERGOCALCIFEROL 1,250 MCG (50,000 IU) CAPSULE PO SCH (08:55)
[2022-06-24] MEDS: LITHIUM CARBONATE ER 450 MG TABLET.ER PO SCH (08:55)
[2022-06-24] MEDS: SENNOSIDES-DOCUSATE SODIUM 1 EACH TAB PO SCH (09:48)
--- NOTE | 2022-06-24 11:08 | P.DS ---
Providers Date of admission: 06/15/22 18:06 Expected date of discharge: 06/24/22 Attending physician: Maverick Katz MD Consults: 06/15/22 17:46 Consult Physician Routine Consulting Provider: Chidi Leiva Consult Reason/Comments: H&P and medical Do you want consulting provider notified?: Yes Primary care physician: Bari Gar - Discharge Diagnosis(es) (1) Suicide attempt by other psychotropic drug overdose Current Visit: Yes Status: Acute Priority: High (2) Major depressive disorder, recurrent severe without psychotic features Current Visit: Yes Status: Acute Priority: High (3) Alcohol use disorder Current Visit: Yes Status: Acute Priority: Low Hospital Course: Admission HPI: Admission note was completed by public relations writer "Patient is a 21 year old single unemployed male who lives with his parents. The patient presented initially to the hospital on 06/12/22. as per Dr Hardy consultation note "Per ER notes, This patient is a 21-year-old man who presents to have evaluation worsening depression and suicidal ideation. This been going on and getting worse now over number days. The patient also states that he tried to overdose this morning around 5 AM. Patient took a total of 3600 mg of Cymbalta. Patient denies coingestants. He states that he feels a bit tremulous now but otherwise denying symptoms related." Poison control control was contacted by ER, and patient was medically cleared by ER. He was admitted to the psychiatry unit briefly, however on arrival to the psychiatry unit it was noted patient could not ambulate due to unsteady gait so he was immediately transferred to the medical unit for further evaluation and treatment." Dr Hardy consultation note also states that "On my evaluation on 06/13/22, patient was found asleep in bed with sitter at bedside to maintain safety. On assessment he is displaying signs of serotonin syndrome, including restlessness, tachycardia, dilated pupils, myoclonus, tremors, increased reflexes lower extremities. He has received one dose of Ativan 1 mg. He presents with depressed mood and depressed affect. He e ndorses suicidal thoughts with intent, and states that he thinks he may try to attempt suicide again. He reports depression, anhedonia, decreased motivation, decreased energy. He appears disheveled with pale skin. He admits to feeling lonely and isolated, feels he lacks a reason, a purpose, a goal. He reports disappointment that his suicide attempt was not successful. At this time patient endorses suicidal but not homicidal ideations. Patient denies any auditory, visual hallucinations, and denies any paranoia or delusions. Patients admits to using history of alcohol and marijuana use, not recently. He reports he used to binge drink but reports his last drug of alcohol was in April 2022 when he overdosed at that time. He reports his last use of marijuana was in July 2021. He denies smoking cigarettes but does sleep nicotine." Patient was discharged and cleared medically after being given cyproheptadine and ativan to treat serotonin syndrome and transferred back to the MHU yesterday. Patient was seen in his room this afternoon and was laying in bed sleeping. he was approached by public relations writer to be interviewed and he declined to speak with public relations writer in the office today and appeared to be gaurded and evasive. he had poor hygiene and grooming, concrete, poverty of contnet. poor insight and judgment. he claims that he has not had any recent stressors at home and impulsivley overdosed on his cymbalta sytating "I just side sitting there and took it". He states that he did not plan this in advance however did state that he took 60 pills. He was minimizing his anxiety and also his mood. He does state that he has a chronic history of depression and suicidal thoughts and is impulsive. States that his sleep and appetite are "fine". He was very flat in his affect today. He showed poor motivation. At this time is admitting to suicidal thoughts however no intent or plan, denying any homicidal ideations. Denies any auditory or visual hallucinations." Hospital course: Upon admission to the unit patient was directable and agreeable to commence treatment and signed adult voluntary form however patient is currently on a deferral. Patient was initially isolative on the unit and with time began participating more and going to groups and he got along well with other patients on the unit and followed unit protocol. Patient was compliant with the medications and denied any side effects throughout hospital course. Patient was started on Prozac and increased her dose of 80 mg daily for mood/anxiety, trazodone 100 mg daily at bedtime when necessary for insomnia, Lithobid 450 mg daily for suicidal thoughts/mood adjunct. [place] level was 0.4 drawn on 06/21. Patient spoke of his stressors and engaged in therapy both group and individual. patient was fairly superficial about his reasons for the overdose. Patient was also seen by medical team for history and physical exam. Throughout the course of the hospitalization patient gradually improved with regards to mood, anxiety, suicidal thoughts, sleep and returned back to their baseline level of functioning. On the day of discharge patient denied any suicidal or homicidal ideations intent or plan denied any auditory or visual hallucinations. Patient endorsed wanting to live for his health and family. The patient denied any access to guns or weapons. Patient denied any paranoia and did not endorse any delusions. Patient does have a significant history of substance abuse and was counseled on abstaining from all substances including alcohol and marijuana. Patient elected to do outpatient substance use treatment program through [facility]. Patient was also counseled on the medications and need for regular compliance and was encouraged to follow-up with their outpatient appointment for mental health and also for primary care. [Prior to discharge a family meeting took place with [facility] liason, addiction social worker, public relations writer, parents and [facility] correctional case manager and discussed options and increased services for outpatient. explored the option for patient to be enrolled in partial program however due to cost, the family and patient declined. Portuguese Tutor spoke with pharmacist over the phone at [facility] and asked to dispense patients medications in 7 day supply with 4 refills for all his meds to limit the ability for overdose. Will provide patient with a pill box aswell. patients family was informed several times to have guns/weapons and pills locked away in the house and they agreed. Mental status exam: General Appearance: Patient appears to be thin, longer hair, stated age is alert, pleasant, and cooperative. Patient is in no acute distress and has improved hygiene and grooming Behavior: Patient is calmly seated without any agitated behavior. superficial Speech: Patient's speech is fluent and nonpressured. Mood/Affect: Patient reports their mood is "alright", affect is congruent Suicidality/Homicidality: Patient denies having any suicidal or homicidal ideation intent or plan. Perceptions: Patient denies any auditory or visual hallucinations. Though content/process: There is no evidence of any delusional thought content and thought process is linear and goal-directed. concrete. Memory and concentration: AOX3, grossly intact for the purposes of this session. Can spell "WORLD" backwards correctly. Judgment and insight: chronically poor/impulsive, however has improved with guarded prognosis Impression: Suicide attempt by overdose of psychotropic drug Major depressive disorder, recurrent, severe without psychotic features Alcohol use disorder Plan: -Continue with discharge today as patient has improved and stabilized psychiatrically and is not currently an imminent threat to himself and/or others. Patient will remain at chronically elevated risk for harm to self and/or others due to his impulsivity. -Continue medications: Prozac 80 mg daily for mood/anxiety, trazodone 100 mg daily at bedtime when necessary for insomnia, Lithobid 450 mg daily for suicidal thoughts/mood adjunct. -Patient was counseled on the need for medication compliance and appropriate follow-up at mental health and also primary care for medical issues. Patient verbalized understanding and agreed. -Social work to to help with discharge today. please above for details on family meeting. Social work also to arrange for patients follow up appointments with [facility] for psychiatric care along with follow up with primary care provider. -Patient counseled on abstaining from recreational drugs and marijuana and alcohol. Was informed/educated on the adverse effects on their physical and mental health. Patient verbally agreed and understood. -Patient was instructed to return to the hospital or seek immediate medical care if their psychiatric or medical symptoms do worsen or reoccur. Abnormal Labs 06/21/22 05:56 Carbon Dioxide 32 H Allergies Allergy/AdvReac Type Severity Reaction Status Date / Time No Known Allergies Allergy Verified 06/12/22 21:51 Laboratory Results WBC 5.2 k/uL (3.8-10.6) 06/21/22 05:56 RBC 5.18 m/uL (4.30-5.90) 06/21/22 05:56 Hgb 14.3 gm/dL (13.0-17.5) 06/21/22 05:56 Hct 45.5 % (39.0-53.0) 06/21/22 05:56 MCV 87.7 fL (80.0-100.0) 06/21/22 05:56 MCH 27.6 pg (25.0-35.0) 06/21/22 05:56 MCHC 31.5 g/dL (31.0-37.0) 06/21/22 05:56 RDW 12.9 % (11.5-15.5) 06/21/22 05:56 Plt Count 315 k/uL (150-450) 06/21/22 05:56 MPV 6.9 06/21/22 05:56 Neutrophils % 56 % 06/21/22 05:56 Lymphocytes % 30 % 06/21/22 05:56 Monocytes % 5 % 06/21/22 05:56 Eosinophils % 6 % 06/21/22 05:56 Basophils % 1 % 06/21/22 05:56 Neutrophils # 2.9 k/uL (1.3-7.7) 06/21/22 05:56 Lymphocytes # 1.5 k/uL (1.0-4.8) 06/21/22 05:56 Monocytes # 0.3 k/uL (0-1.0) 06/21/22 05:56 Eosinophils # 0.3 k/uL (0-0.7) 06/21/22 05:56 Basophils # 0.0 k/uL (0-0.2) 06/21/22 05:56 Sodium 141 mmol/L (137-145) 06/21/22 05:56 Potassium 4.7 mmol/L (3.5-5.1) 06/21/22 05:56 Chloride 101 mmol/L (98-107) 06/21/22 05:56 Carbon Dioxide 32 mmol/L (22-30) H 06/21/22 05:56 Anion Gap 8 mmol/L 06/21/22 05:56 BUN 11 mg/dL (9-20) 06/21/22 05:56 Creatinine 0.82 mg/dL (0.66-1.25) 06/21/22 05:56 Est GFR (CKD-EPI)AfAm >90 (>60 ml/min/1.73 sqM) 06/21/22 05:56 Est GFR (CKD-EPI)NonAf >90 (>60 ml/min/1.73 sqM) 06/21/22 05:56 Glucose 92 mg/dL (74-99) 06/21/22 05:56 Calcium 8.8 mg/dL (8.4-10.2) 06/21/22 05:56 Total Bilirubin 0.6 mg/dL (0.2-1.3) 06/21/22 05:56 AST 27 U/L (17-59) 06/21/22 05:56 ALT 35 U/L (4-49) 06/21/22 05:56 Alkaline Phosphatase 52 U/L (38-126) 06/21/22 05:56 Total Protein 6.9 g/dL (6.3-8.2) 06/21/22 05:56 Albumin 4.3 g/dL (3.5-5.0) 06/21/22 05:56 [place] 0.3 mmol/L 06/21/22 05:56 Vital Signs Temp 97.7 F 06/24/22 06:35 Pulse 76 06/24/22 06:35 Resp 14 06/24/22 06:35 BP 101/56 06/24/22 06:35 Pulse Ox 97 06/23/22 06:00 FiO2 Patient Condition at Discharge: Stable Plan - Discharge Summary Discharge Rx Participant: No New Discharge Prescriptions: [place] Carbonate ER [Lithobid] 450 mg PO DAILY 7 Days #7 tab traZODone HCL [Desyrel] 100 mg PO HS PRN 7 Days #7 tab PRN Reason: Insomnia FLUoxetine HCL [PROzac] 80 mg PO DAILY 7 Days #14 cap Acetaminophen Tab [Tylenol] 650 mg PO Q4HR PRN #0 tab PRN Reason: Mild Pain (Scale 1 To 3) Continue Ergocalciferol (Vitamin D2) [Drisdol (50,000 Iu)] 1,250 mcg PO Q7D 7 Days #1 cap Pantoprazole [Protonix] 40 mg PO DAILY 7 Days #7 tab Discontinued DULoxetine HCL [Cymbalta] 60 mg PO BID 15 Days #30 cap [place] Carbonate 600 mg PO DAILY Discharge Medication List Acetaminophen Tab [Tylenol] 650 mg PO Q4HR PRN #0 tab 06/24/22 [Rx] Ergocalciferol (Vitamin D2) [Drisdol (50,000 Iu)] 1,250 mcg PO Q7D 7 Days #1 cap 06/24/22 [Rx] FLUoxetine HCL [PROzac] 80 mg PO DAILY 7 Days #14 cap 06/24/22 [Rx] [place] Carbonate ER [Lithobid] 450 mg PO DAILY 7 Days #7 tab 06/24/22 [Rx] Pantoprazole [Protonix] 40 mg PO DAILY 7 Days #7 tab 06/24/22 [Rx] traZODone HCL [Desyrel] 100 mg PO HS PRN 7 Days #7 tab 06/24/22 [Rx] Follow up Appointment(s)/Referral(s): [facility] [Outside] - 06/30/22 4:00 pm (06-30-22 at 4:00 with Luca Deleon 06-30-22 at 5:[address] Amato Both at the [place] office) Bari Gar MD [Primary Care Provider] - 1 Week Activity/Diet/Wound Care/Special Instructions: Avoid the use of street drugs and alcohol. Take all medications as prescribed. When you are in need of refills on your medications, please contact your medical provider and/or outpatient psychiatrist to have this done. Please go to scheduled outpatient appointments for aftercare treatment. If symptoms return or become worse, call the crisis line at and/or go to the nearest emergency room for evaluation. Discharge Disposition: HOME SELF-CARE
== END 2022-06-24 14:38 | disposition home or self-care (01) | DRG 885 ==
LOC: 3MHU 18:06
PROVIDERS: ADMIT Psychiatry & Neurology Psychiatry; ATTEND Psychiatry & Neurology Psychiatry
DX: F33.2 Major depressive disorder, recurrent severe without psychotic features (principal); R45.851 Suicidal ideations; R25.1 Tremor, unspecified; T43.212D Poisoning by selective serotonin and norepinephrine reuptake inhibitors, intentional self-harm, subsequent encounter; F10.10 Alcohol abuse, uncomplicated; F41.9 Anxiety disorder, unspecified; G47.00 Insomnia, unspecified; Z79.899 Other long term (current) drug therapy; Z81.8 Family history of other mental and behavioral disorders
CPT/HCPCS: 80053; 80178; 85025